=== PATIENT | female | born 1960 | race Caucasian/White ===

== ENCOUNTER 2020-09-03 12:31 | Inpatient (IN) | payer OTHER ==
[~2020-09-03] VITALS: Ht 157.5 cm; Wt 70.8 kg
[2020-09-03] MEDS ORDERED: LEVOFLOXACIN 500MG PREMIX 100 ML IV ONE (13:30)
[2020-09-03] MEDS ORDERED: SODIUM CHLORIDE 0.9% 1000ML BAG (SEPSIS BOLUS) IV ONE (13:30)
[2020-09-03 14:10] LABS: HEMATOCRIT. 34.4 % (36.0-48.0); HEMOGLOBIN. 11.8 g/dL (12.0-16.0); MEAN CORPUSCULAR HEMOGLOBIN 28.5 pg (28.0-32.0); MEAN PLATELET VOLUME 6.1 fl (7.4-10.4); PLATELET 245 x1000/uL (130-400); RED BLOOD CELL COUNT 4.15 mill/uL (4.2-5.4); RED CELL DISTRIBUTION WIDTH 17.7 % (11.6-14.6)
[2020-09-03 14:12] LABS: CHLORIDE 99 mEq/L (98-107)
[2020-09-03] MEDS ORDERED: ALBUTEROL (0.083%) 2.5MG/3ML NEB HHN STA (14:14)
[2020-09-03] MEDS ORDERED: IPRATROPIUM BROMIDE (0.02%) 0.5MG/2.5ML NEB HHN STA (14:14)
[2020-09-03 14:15] LABS: PROTHROMBIN TIME 10.6 sec (9.6-11.0)
[2020-09-03] MEDS ORDERED: ACETAMINOPHEN 325MG TABLET PO ONE (15:30)
[2020-09-03 15:56] LABS: PLATELET ESTIMATE NORMAL
[2020-09-03] MEDS ORDERED: IPRATROPIUM BROMIDE (0.02%) 0.5MG/2.5ML NEB HHN PRN (16:15)
[2020-09-03 16:52] LABS: BG BASE EXCESS -1.2 mmol/L (-2.0-2.0); BG CARBOXYHEMOGLOBIN 0.3 % (0.5-1.5); BG DEOXYHEMOGLOBIN 2.3 % (0.0-5.0); BG HCO3 ACT 21.4 mmol/L (22.0-26.0); BG METHEMOGLOBIN 0.3 % (0.0-1.5); BG OXYGEN SATURATION 97.7 % (92.0-98.5); BG OXYHEMOGLOBIN 97.1 % (94.0-97.0); BG PCO2 29.2 mmHg (35.0-45.0); BG PH 7.483 (7.350-7.450); BG PO2 100.3 mmHg (75.0-100.0); BG SAMPLE SITE LEFT RADIAL; BG TOTAL HEMOGLOBIN 10.9 g/dL (12.0-18.0); BG VENT MODE NASAL CANNULA
[2020-09-03] MEDS ORDERED: VANCOMYCIN 1 G PREMIX 200 ML IV NR (17:30)
[2020-09-03 22:00] VITALS: BP 123/95
[2020-09-03] MEDS ORDERED: DEXT 5%/0.45% NACL KCL 20MEQ/L 1,000 ML IV SCH (22:45)
[2020-09-03] MEDS ORDERED: IPRATROPIUM/ALBUTEROL 0.5-3(2.5)MG/3ML NEB HHN PRN (22:45)
[2020-09-03 22:52] VITALS: BP 123/95
[2020-09-03] MEDS ORDERED: NALOXONE HCL 0.4MG/ML VIAL IV PRN (23:00)
[2020-09-04] VITALS (11 sets, daily range): BP systolic 93–159; BP diastolic 65–106
[2020-09-04] MEDS: IPRATROPIUM BROMIDE (0.02%) 0.5MG/2.5ML NEB HHN SCH ×3 (00:40→15:34)
[2020-09-04] MEDS: MORPHINE SULFATE 2 MG/ML CPJ (NOT FOR IM USE) IV PRN ×2 (03:50→12:44)
[2020-09-04 05:20] LABS: CHLORIDE 101 mEq/L (98-107); MEAN CORPUSCULAR HEMOGLOBIN 28.7 pg (28.0-32.0); MEAN CORPUSCULAR VOLUME 82.8 fL (81.0-99.0); MEAN PLATELET VOLUME 5.9 fl (7.4-10.4); PLATELET 205 x1000/uL (130-400); RED BLOOD CELL COUNT 3.47 mill/uL (4.2-5.4); RED CELL DISTRIBUTION WIDTH 17.5 % (11.6-14.6)
[2020-09-04] MEDS ORDERED: VANCOMYCIN 750 MG PREMIX 150 ML IV SCH (05:30)
[2020-09-04 05:36] LABS: HEMATOCRIT. 28.8 % (36.0-48.0)
[2020-09-04] MEDS ORDERED: METOPROLOL TARTRATE 50MG TABLET PO SCH (09:00)
[2020-09-04 09:08] LABS: BG BASE EXCESS 0.2 mmol/L (-2.0-2.0); BG CARBOXYHEMOGLOBIN 0.4 % (0.5-1.5); BG DEOXYHEMOGLOBIN 13.6 % (0.0-5.0); BG FRACTION INSPIRED OXYGEN 36; BG HCO3 ACT 23.5 mmol/L (22.0-26.0); BG METHEMOGLOBIN 0.2 % (0.0-1.5); BG OXYGEN SATURATION 86.3 % (92.0-98.5); BG OXYHEMOGLOBIN 85.8 % (94.0-97.0); BG PCO2 33.3 mmHg (35.0-45.0); BG PH 7.466 (7.350-7.450); BG PO2 47.5 mmHg (75.0-100.0); BG SAMPLE SITE LEFT BRACHIAL; BG TOTAL HEMOGLOBIN 10.6 g/dL (12.0-18.0); BG VENT MODE NASAL CANNULA
[2020-09-04] MEDS: METOPROLOL TARTRATE 50MG TABLET GT SCH ×2 (09:30→21:00)
[2020-09-04] MEDS: PANTOPRAZOLE SODIUM 40 MG/VIAL IV SCH (09:30)
[2020-09-04] MEDS: SODIUM CHLORIDE 0.45% 1,000 ML IV SCH ×2 (10:11→23:18)
[2020-09-04 11:38] LABS: BG BASE EXCESS -1.2 mmol/L (-2.0-2.0); BG CARBOXYHEMOGLOBIN 0.5 % (0.5-1.5); BG DEOXYHEMOGLOBIN 13.7 % (0.0-5.0); BG HCO3 ACT 21.8 mmol/L (22.0-26.0); BG METHEMOGLOBIN 0.4 % (0.0-1.5); BG OXYGEN SATURATION 86.2 % (92.0-98.5); BG OXYHEMOGLOBIN 85.4 % (94.0-97.0); BG PCO2 31.1 mmHg (35.0-45.0); BG PH 7.464 (7.350-7.450); BG PO2 46.8 mmHg (75.0-100.0); BG TOTAL HEMOGLOBIN 11.9 g/dL (12.0-18.0)
[2020-09-04] MEDS ORDERED: IOHEXOL-350 100 ML BOTTLE ONE (13:25)
[2020-09-04] MEDS ORDERED: LEVOFLOXACIN 750MG PREMIX 150 ML IV SCH (14:00)
[2020-09-04] MEDS: LEVOFLOXACIN 750MG PREMIX 150 ML IV SCH (14:33)
[2020-09-04 14:54] LABS: NUCLEATED RED BLOOD CELLS 1 /100 WBC; PLATELET ESTIMATE NORMAL
[2020-09-04] MEDS: ACETAMINOPHEN 650MG/20.3ML UDC GT PRN (15:12)
[2020-09-04] MEDS ORDERED: DIGOXIN 500MCG/2ML AMP IV NR (15:30)
[2020-09-04] MEDS: VANCOMYCIN 750 MG PREMIX 150 ML IV SCH (17:48)
[2020-09-04] MEDS ORDERED: PHENYLEPHRINE 50 MG in DEXTROSE 5% WATER 250 ML IV PRN (22:15)
[2020-09-04] MEDS ORDERED: PHENYLEPHRINE 50 MG in DEXT 5% WATER 245 ML IV PRN (22:15)
[2020-09-04] MEDS ORDERED: SODIUM CHLORIDE 0.9% 500 ML IV NR ×2 (22:30→23:30)
[2020-09-04 22:53] LABS: BG BASE EXCESS -1.9 mmol/L (-2.0-2.0); BG CARBOXYHEMOGLOBIN 0.3 % (0.5-1.5); BG DEOXYHEMOGLOBIN 2.6 % (0.0-5.0); BG FRACTION INSPIRED OXYGEN 100; BG HCO3 ACT 21.6 mmol/L (22.0-26.0); BG METHEMOGLOBIN 0.3 % (0.0-1.5); BG OXYGEN SATURATION 97.4 % (92.0-98.5); BG OXYHEMOGLOBIN 96.8 % (94.0-97.0); BG PCO2 32.4 mmHg (35.0-45.0); BG PH 7.442 (7.350-7.450); BG PO2 100.6 mmHg (75.0-100.0); BG SAMPLE SITE RIGHT RADIAL; BG TOTAL HEMOGLOBIN 10.3 g/dL (12.0-18.0); BG VENT MODE MASK - NRB
[2020-09-05] VITALS (48 sets, daily range): BP systolic 97–147; BP diastolic 39–98
[2020-09-05] MEDS: MORPHINE SULFATE 2 MG/ML CPJ (NOT FOR IM USE) IV PRN ×4 (01:19→21:30)
[2020-09-05] MEDS: VANCOMYCIN 750 MG PREMIX 150 ML IV SCH (05:28)
[2020-09-05] MEDS: SODIUM CHLORIDE 0.45% 1,000 ML IV SCH (05:30)
[2020-09-05 06:03] LABS: HEMATOCRIT. 29.6 % (36.0-48.0); HEMOGLOBIN. 10.4 g/dL (12.0-16.0); MEAN CORPUSCULAR HEMOGLOBIN 30.4 pg (28.0-32.0); MEAN CORPUSCULAR VOLUME 86.4 fL (81.0-99.0); RED BLOOD CELL COUNT 3.43 mill/uL (4.2-5.4); RED CELL DISTRIBUTION WIDTH 17.4 % (11.6-14.6)
[2020-09-05 06:10] LABS: CHLORIDE 99 mEq/L (98-107)
[2020-09-05 06:17] LABS: VANCOMYCIN TROUGH 10.1 ug/mL (5.0-10.0)
[2020-09-05] MEDS: IPRATROPIUM BROMIDE (0.02%) 0.5MG/2.5ML NEB HHN SCH ×3 (09:24→20:17)
[2020-09-05] MEDS: ACETYLCYSTEINE 100MG/ML 10% VIAL 4ML INH SCH ×2 (09:25→16:32)
[2020-09-05] MEDS: PANTOPRAZOLE SODIUM 40 MG/VIAL IV SCH (09:50)
[2020-09-05] MEDS: METOPROLOL TARTRATE 50MG TABLET GT SCH ×2 (09:51→20:32)
[2020-09-05] MEDS ORDERED: [UNRECOGNIZED DRUG - OTHER] (10:58)
[2020-09-05] MEDS ORDERED: PANT40TA51 PO (11:00)
[2020-09-05] MEDS ORDERED: PROC10TA13 GT (11:02)
[2020-09-05] MEDS ORDERED: KEPP500 MT (11:04)
[2020-09-05 12:25] LABS: MEAN PLATELET VOLUME 6.4 fl (7.4-10.4); PLATELET ESTIMATE NORMAL
[2020-09-05 12:26] LABS: PLATELET 179 x1000/uL (130-400)
[2020-09-05] MEDS: LEVOFLOXACIN 750MG PREMIX 150 ML IV SCH (12:59)
[2020-09-05] MEDS: PREDNISONE 20MG TABLET PO SCH (12:59)
[2020-09-05] MEDS: VANCOMYCIN 500 MG PREMIX 100 ML IV SCH ×2 (15:08→22:09)
[2020-09-05] MEDS ORDERED: SULF1TAB47 MT (15:47)
[2020-09-05 17:06] LABS: COLOR URINE YELLOW (YELLOW)
[2020-09-05 17:07] LABS: CLARITY URINE CLOUDY (CLEAR); KETONES URINE NEGATIVE (NEGATIVE); NITRITE URINE NEGATIVE (NEGATIVE); OCCULT BLOOD URINE NEGATIVE (NEGATIVE); PH URINE 5.5 (4.5-8.0); PROTEIN URINE 1+ (NEGATIVE); SPECIFIC GRAVITY URINE 1.025 (1.005-1.030); UROBILINOGEN URINE 0.2 E.U./dL (0.2-1.0)
[2020-09-05 17:08] LABS: LEUKOCYTE ESTERASE URINE NEGATIVE (NEGATIVE)
[2020-09-05] MEDS ORDERED: VANCOMYCIN HCL 1 GM/VIAL GT SCH (18:00)
[2020-09-06] VITALS (40 sets, daily range): BP systolic 67–178; BP diastolic 44–132
[2020-09-06] MEDS: IPRATROPIUM BROMIDE (0.02%) 0.5MG/2.5ML NEB HHN SCH ×5 (00:09→20:50)
[2020-09-06] MEDS: ACETYLCYSTEINE 100MG/ML 10% VIAL 4ML INH SCH ×4 (00:09→22:00)
[2020-09-06] MEDS: VANCOMYCIN HCL 1000 MG/20 ML ORAL PO SCH ×4 (01:21→17:10)
[2020-09-06 04:50] LABS: HEMATOCRIT. 27.9 % (36.0-48.0); HEMOGLOBIN. 9.4 g/dL (12.0-16.0); MEAN CORPUSCULAR HEMOGLOBIN 27.8 pg (28.0-32.0); MEAN CORPUSCULAR VOLUME 82.9 fL (81.0-99.0); MEAN PLATELET VOLUME 6.4 fl (7.4-10.4); PLATELET 194 x1000/uL (130-400); RED BLOOD CELL COUNT 3.36 mill/uL (4.2-5.4); RED CELL DISTRIBUTION WIDTH 17.3 % (11.6-14.6)
[2020-09-06 05:07] LABS: CHLORIDE 94 mEq/L (98-107)
[2020-09-06] MEDS: METOPROLOL TARTRATE 50MG TABLET GT SCH ×2 (08:36→21:53)
[2020-09-06] MEDS: PREDNISONE 20MG TABLET PO SCH (08:36)
[2020-09-06] MEDS: PANTOPRAZOLE SODIUM 40 MG/VIAL IV SCH (08:36)
[2020-09-06] MEDS: VANCOMYCIN 500 MG PREMIX 100 ML IV SCH ×3 (08:36→21:53)
[2020-09-06] MEDS: ACETAMINOPHEN 650MG/20.3ML UDC GT PRN (08:43)
[2020-09-06 10:17] LABS: PLATELET ESTIMATE NORMAL
[2020-09-06] MEDS ORDERED: FUROSEMIDE 40MG/4ML VIAL IVP NR (10:45)
[2020-09-06] MEDS: SODIUM CHLORIDE 0.9% 1,000 ML IV SCH (10:51)
[2020-09-06] MEDS: LEVOFLOXACIN 750MG PREMIX 150 ML IV SCH (10:51)
[2020-09-06 15:45] LABS: VANCOMYCIN TROUGH 16.9 ug/mL (5.0-10.0)
[2020-09-06] MEDS: MORPHINE SULFATE 2 MG/ML CPJ (NOT FOR IM USE) IV PRN (20:51)
[2020-09-07] VITALS: BP 117/69
[2020-09-07] MEDS: VANCOMYCIN HCL 1000 MG/20 ML ORAL PO SCH ×4 (00:13→17:56)
[2020-09-07] MEDS: HYDROCODONE/ACETAMINOPHEN 5/325MG TABLET PO PRN ×2 (00:25→10:05)
[2020-09-07 04:00] VITALS: BP 112/62
[2020-09-07] MEDS: VANCOMYCIN 500 MG PREMIX 100 ML IV SCH ×2 (05:20→14:48)
[2020-09-07] MEDS: SODIUM CHLORIDE 0.9% 1,000 ML IV SCH (07:39)
[2020-09-07 08:00] VITALS: BP 102/56
[2020-09-07] MEDS: IPRATROPIUM BROMIDE (0.02%) 0.5MG/2.5ML NEB HHN SCH ×4 (08:08→20:33)
[2020-09-07] MEDS: ACETYLCYSTEINE 100MG/ML 10% VIAL 4ML INH SCH ×2 (08:08→13:47)
[2020-09-07] MEDS: METOPROLOL TARTRATE 50MG TABLET GT SCH ×2 (09:00→21:13)
[2020-09-07] MEDS: PANTOPRAZOLE SODIUM 40 MG/VIAL IV SCH (09:29)
[2020-09-07] MEDS: PREDNISONE 20MG TABLET PO SCH (09:30)
[2020-09-07] MEDS: LEVOFLOXACIN 750MG PREMIX 150 ML IV SCH (11:37)
[2020-09-07 12:00] VITALS: BP 112/73
[2020-09-07] MEDS ORDERED: DIGOXIN 500MCG/2ML AMP IV NR (13:30)
[2020-09-07 16:00] VITALS: BP 142/73
[2020-09-07] MEDS: DOCUSATE SODIUM 100MG CAPSULE PO SCH (17:00)
[2020-09-07 20:00] VITALS: BP 125/86
[2020-09-07] MEDS ORDERED: PRED1TAB GT (20:29)
[2020-09-08] VITALS: BP 129/76
[2020-09-08] MEDS: VANCOMYCIN HCL 1000 MG/20 ML ORAL PO SCH ×4 (00:16→18:17)
[2020-09-08] MEDS: HYDROCODONE/ACETAMINOPHEN 5/325MG TABLET PO PRN ×2 (00:17→14:20)
[2020-09-08] MEDS: IPRATROPIUM BROMIDE (0.02%) 0.5MG/2.5ML NEB HHN SCH ×4 (00:56→18:00)
[2020-09-08] MEDS: ACETYLCYSTEINE 100MG/ML 10% VIAL 4ML INH SCH ×4 (00:56→20:30)
[2020-09-08 04:00] VITALS: BP 118/69
[2020-09-08] MEDS: SODIUM CHLORIDE 0.9% 1,000 ML IV SCH ×2 (05:35→23:00)
[2020-09-08 05:57] LABS: HEMATOCRIT. 27.9 % (36.0-48.0); HEMOGLOBIN. 9.2 g/dL (12.0-16.0); MEAN CORPUSCULAR HEMOGLOBIN 27.7 pg (28.0-32.0); MEAN CORPUSCULAR VOLUME 83.6 fL (81.0-99.0); MEAN PLATELET VOLUME 6.4 fl (7.4-10.4); PLATELET 192 x1000/uL (130-400); RED BLOOD CELL COUNT 3.33 mill/uL (4.2-5.4); RED CELL DISTRIBUTION WIDTH 16.9 % (11.6-14.6)
[2020-09-08 06:06] LABS: CHLORIDE 95 mEq/L (98-107)
[2020-09-08 08:00] VITALS: BP 119/75
[2020-09-08] MEDS: DOCUSATE SODIUM 100MG CAPSULE PO SCH ×2 (09:00→16:25)
[2020-09-08] MEDS: PREDNISONE 20MG TABLET PO SCH (09:37)
[2020-09-08] MEDS: METOPROLOL TARTRATE 50MG TABLET GT SCH ×2 (09:38→21:00)
[2020-09-08] MEDS: FAMOTIDINE 20MG TABLET GT SCH ×2 (09:38→22:02)
[2020-09-08] MEDS: MORPHINE SULFATE 2 MG/ML CPJ (NOT FOR IM USE) IV PRN (10:08)
[2020-09-08 12:00] VITALS: BP 115/81
[2020-09-08 13:06] LABS: BG CARBOXYHEMOGLOBIN 0.3 % (0.5-1.5); BG DEOXYHEMOGLOBIN 17.5 % (0.0-5.0); BG FRACTION INSPIRED OXYGEN 21; BG HCO3 ACT 25.8 mmol/L (22.0-26.0); BG METHEMOGLOBIN 0.1 % (0.0-1.5); BG OXYGEN SATURATION 82.4 % (92.0-98.5); BG OXYHEMOGLOBIN 82.1 % (94.0-97.0); BG PCO2 36.9 mmHg (35.0-45.0); BG PH 7.462 (7.350-7.450); BG PO2 43.1 mmHg (75.0-100.0); BG SAMPLE SITE RIGHT BRACHIAL; BG TOTAL HEMOGLOBIN 10.5 g/dL (12.0-18.0); BG VENT MODE ROOM AIR
[2020-09-08 14:10] LABS: PLATELET ESTIMATE NORMAL
[2020-09-08] MEDS: LEVOFLOXACIN 750MG PREMIX 150 ML IV SCH (14:19)
[2020-09-08 16:00] VITALS: BP 106/77
[2020-09-08 20:00] VITALS: BP 103/64
[2020-09-08] MEDS: ACETAMINOPHEN 650MG/20.3ML UDC GT PRN (22:02)
[2020-09-09] VITALS: BP 108/72
[2020-09-09] MEDS: VANCOMYCIN HCL 1000 MG/20 ML ORAL PO SCH ×5 (00:29→23:52)
[2020-09-09] MEDS: IPRATROPIUM BROMIDE (0.02%) 0.5MG/2.5ML NEB HHN SCH ×4 (00:48→16:17)
[2020-09-09 04:00] VITALS: BP 111/69
[2020-09-09 07:22] LABS: HEMATOCRIT. 27.1 % (36.0-48.0); HEMOGLOBIN. 9.4 g/dL (12.0-16.0); MEAN CORPUSCULAR HEMOGLOBIN 28.6 pg (28.0-32.0); MEAN CORPUSCULAR VOLUME 82.5 fL (81.0-99.0); MEAN PLATELET VOLUME 6.3 fl (7.4-10.4); PLATELET 160 x1000/uL (130-400); RED BLOOD CELL COUNT 3.29 mill/uL (4.2-5.4); RED CELL DISTRIBUTION WIDTH 17.4 % (11.6-14.6)
[2020-09-09 07:28] LABS: CHLORIDE 95 mEq/L (98-107)
[2020-09-09 08:21] VITALS: BP 128/94
[2020-09-09] MEDS: DOCUSATE SODIUM 100MG CAPSULE PO SCH ×2 (09:00→17:00)
[2020-09-09] MEDS: FAMOTIDINE 20MG TABLET GT SCH ×2 (09:03→21:22)
[2020-09-09] MEDS: PREDNISONE 20MG TABLET PO SCH (09:03)
[2020-09-09] MEDS: METOPROLOL TARTRATE 50MG TABLET GT SCH ×2 (09:03→21:00)
[2020-09-09] MEDS: ACETYLCYSTEINE 100MG/ML 10% VIAL 4ML INH SCH ×2 (09:20→16:18)
[2020-09-09] MEDS: ACETAMINOPHEN 650MG/20.3ML UDC GT PRN ×2 (10:03→21:21)
[2020-09-09 11:41] VITALS: BP 104/55
[2020-09-09] MEDS: LEVOFLOXACIN 750MG PREMIX 150 ML IV SCH (11:51)
[2020-09-09 16:00] VITALS: BP 93/54
[2020-09-09] MEDS: SODIUM CHLORIDE 0.9% 1,000 ML IV SCH (19:02)
[2020-09-09 20:20] VITALS: BP 106/75
[2020-09-09 21:07] LABS: PLATELET ESTIMATE NORMAL
[2020-09-10] VITALS (7 sets, daily range): BP systolic 112–151; BP diastolic 64–83
[2020-09-10 05:03] LABS: CHLORIDE 96 mEq/L (98-107)
[2020-09-10] MEDS: IPRATROPIUM BROMIDE (0.02%) 0.5MG/2.5ML NEB HHN SCH ×4 (05:23→20:41)
[2020-09-10 06:00] LABS: HEMATOCRIT. 27.4 % (36.0-48.0); HEMOGLOBIN. 9.1 g/dL (12.0-16.0); MEAN PLATELET VOLUME 6.5 fl (7.4-10.4); PLATELET 144 x1000/uL (130-400); RED BLOOD CELL COUNT 3.26 mill/uL (4.2-5.4); RED CELL DISTRIBUTION WIDTH 17.8 % (11.6-14.6)
[2020-09-10] MEDS: VANCOMYCIN HCL 1000 MG/20 ML ORAL PO SCH ×3 (06:24→23:42)
[2020-09-10] MEDS: DOCUSATE SODIUM 100MG CAPSULE PO SCH ×2 (09:00→17:00)
[2020-09-10] MEDS: PREDNISONE 20MG TABLET PO SCH (09:52)
[2020-09-10] MEDS: FAMOTIDINE 20MG TABLET GT SCH ×2 (09:53→20:16)
[2020-09-10] MEDS: METOPROLOL TARTRATE 50MG TABLET GT SCH ×2 (10:00→20:15)
[2020-09-10 13:10] LABS: BG BASE EXCESS 2.7 mmol/L (-2.0-2.0); BG CARBOXYHEMOGLOBIN 0.2 % (0.5-1.5); BG DEOXYHEMOGLOBIN 3.2 % (0.0-5.0); BG FRACTION INSPIRED OXYGEN 55; BG HCO3 ACT 27.3 mmol/L (22.0-26.0); BG METHEMOGLOBIN 0.2 % (0.0-1.5); BG OXYGEN SATURATION 96.8 % (92.0-98.5); BG OXYHEMOGLOBIN 96.4 % (94.0-97.0); BG PCO2 42.5 mmHg (35.0-45.0); BG PH 7.426 (7.350-7.450); BG PO2 92.3 mmHg (75.0-100.0); BG SAMPLE SITE RIGHT BRACHIAL; BG TOTAL HEMOGLOBIN 10.2 g/dL (12.0-18.0); BG VENT MODE MASK - BIPAP
[2020-09-10] MEDS ORDERED: MORPHINE SULFATE 2 MG/ML CPJ (NOT FOR IM USE) IV PRN (15:30)
[2020-09-10] MEDS ORDERED: HYDROCODONE/ACETAMINOPHEN 5/325MG TABLET PO PRN (15:30)
[2020-09-10] MEDS: ACETYLCYSTEINE 100MG/ML 10% VIAL 4ML INH SCH (15:44)
[2020-09-10] MEDS: SODIUM CHLORIDE 0.9% 1,000 ML IV SCH (18:25)
[2020-09-11] VITALS (19 sets, daily range): BP systolic 87–126; BP diastolic 59–79
[2020-09-11] MEDS: IPRATROPIUM BROMIDE (0.02%) 0.5MG/2.5ML NEB HHN SCH ×4 (01:37→20:00)
[2020-09-11] MEDS: ACETYLCYSTEINE 100MG/ML 10% VIAL 4ML INH SCH ×3 (01:37→15:59)
[2020-09-11] MEDS: ACETAMINOPHEN 650MG/20.3ML UDC GT PRN ×2 (03:08→18:31)
[2020-09-11] MEDS: VANCOMYCIN HCL 1000 MG/20 ML ORAL PO SCH ×3 (05:11→18:27)
[2020-09-11 07:22] LABS: CHLORIDE 94 mEq/L (98-107)
[2020-09-11 08:19] LABS: HEMATOCRIT. 27.2 % (36.0-48.0); HEMOGLOBIN. 8.7 g/dL (12.0-16.0); MEAN CORPUSCULAR HEMOGLOBIN 27.3 pg (28.0-32.0); MEAN CORPUSCULAR VOLUME 85.5 fL (81.0-99.0); MEAN PLATELET VOLUME 6.5 fl (7.4-10.4); PLATELET 141 x1000/uL (130-400); RED BLOOD CELL COUNT 3.18 mill/uL (4.2-5.4); RED CELL DISTRIBUTION WIDTH 17.6 % (11.6-14.6)
[2020-09-11] MEDS: DOCUSATE SODIUM 100MG CAPSULE PO SCH ×2 (09:00→17:00)
[2020-09-11] MEDS: METOPROLOL TARTRATE 50MG TABLET GT SCH ×2 (09:00→21:00)
[2020-09-11] MEDS: SODIUM CHLORIDE 0.9% 1,000 ML IV SCH (10:39)
[2020-09-11] MEDS: FAMOTIDINE 20MG TABLET GT SCH ×2 (10:39→22:05)
[2020-09-11] MEDS: PREDNISONE 20MG TABLET PO SCH (10:40)
[2020-09-11] MEDS ORDERED: NALOXONE HCL 0.4MG/ML VIAL IV PRN (13:00)
[2020-09-11] MEDS: AZTREONAM 2 GM in DEXT 5% WATER 100 ML IV SCH ×2 (15:00→22:05)
[2020-09-11 17:54] LABS: PLATELET ESTIMATE NORMAL
[2020-09-11 19:15] LABS: PLATELET ESTIMATE NORMAL
[2020-09-12] VITALS (15 sets, daily range): BP systolic 96–130; BP diastolic 64–76
[2020-09-12] MEDS: IPRATROPIUM BROMIDE (0.02%) 0.5MG/2.5ML NEB HHN SCH ×6 (00:43→21:29)
[2020-09-12] MEDS: ACETYLCYSTEINE 100MG/ML 10% VIAL 4ML INH SCH ×3 (00:44→16:40)
[2020-09-12] MEDS: AZTREONAM 2 GM in DEXT 5% WATER 100 ML IV SCH ×3 (06:30→21:25)
[2020-09-12] MEDS: SODIUM CHLORIDE 0.9% 1,000 ML IV SCH (07:00)
[2020-09-12 07:12] LABS: CHLORIDE 99 mEq/L (98-107)
[2020-09-12 07:19] LABS: HEMATOCRIT. 26.9 % (36.0-48.0); HEMOGLOBIN. 8.5 g/dL (12.0-16.0); MEAN CORPUSCULAR HEMOGLOBIN 27.2 pg (28.0-32.0); MEAN CORPUSCULAR VOLUME 86.3 fL (81.0-99.0); MEAN PLATELET VOLUME 6.9 fl (7.4-10.4); PLATELET 105 x1000/uL (130-400); RED BLOOD CELL COUNT 3.12 mill/uL (4.2-5.4); RED CELL DISTRIBUTION WIDTH 17.9 % (11.6-14.6)
[2020-09-12] MEDS: PREDNISONE 20MG TABLET PO SCH (08:09)
[2020-09-12] MEDS: DOCUSATE SODIUM 100MG CAPSULE PO SCH ×2 (08:09→16:10)
[2020-09-12] MEDS: FAMOTIDINE 20MG TABLET GT SCH ×2 (08:09→21:18)
[2020-09-12] MEDS: METOPROLOL TARTRATE 50MG TABLET GT SCH ×2 (08:10→21:18)
[2020-09-12] MEDS: VANCOMYCIN HCL 1000 MG/20 ML ORAL PO SCH ×2 (13:03→17:26)
[2020-09-12] MEDS: METOCLOPRAMIDE HCL 10MG/2ML VIAL IV SCH (17:26)
[2020-09-12 20:20] LABS: PLATELET ESTIMATE DECREASED
[2020-09-13] VITALS (30 sets, daily range): BP systolic 45–146; BP diastolic 22–107
[2020-09-13] MEDS: IPRATROPIUM BROMIDE (0.02%) 0.5MG/2.5ML NEB HHN SCH ×5 (00:53→16:35)
[2020-09-13] MEDS: ACETYLCYSTEINE 100MG/ML 10% VIAL 4ML INH SCH ×3 (00:53→16:35)
[2020-09-13] MEDS: SODIUM CHLORIDE 0.9% 1,000 ML IV SCH ×3 (03:00→23:21)
[2020-09-13] MEDS: AZTREONAM 2 GM in DEXT 5% WATER 100 ML IV SCH ×3 (05:10→22:00)
[2020-09-13] MEDS: VANCOMYCIN HCL 1000 MG/20 ML ORAL PO SCH ×4 (05:18→17:38)
[2020-09-13] MEDS: METOCLOPRAMIDE HCL 10MG/2ML VIAL IV SCH ×4 (05:20→17:38)
[2020-09-13 07:21] LABS: CHLORIDE 100 mEq/L (98-107)
[2020-09-13 07:49] LABS: HEMOGLOBIN. 8.1 g/dL (12.0-16.0); MEAN CORPUSCULAR HEMOGLOBIN 27.9 pg (28.0-32.0); MEAN PLATELET VOLUME 6.9 fl (7.4-10.4); PLATELET 109 x1000/uL (130-400); RED BLOOD CELL COUNT 2.91 mill/uL (4.2-5.4); RED CELL DISTRIBUTION WIDTH 17.5 % (11.6-14.6)
[2020-09-13] MEDS: PREDNISONE 20MG TABLET PO SCH (08:56)
[2020-09-13] MEDS: METOPROLOL TARTRATE 50MG TABLET GT SCH ×2 (08:57→21:00)
[2020-09-13] MEDS: FAMOTIDINE 20MG TABLET GT SCH ×2 (08:58→21:00)
[2020-09-13] MEDS: DOCUSATE SODIUM 100MG CAPSULE PO SCH ×2 (08:58→16:46)
[2020-09-13] MEDS ORDERED: VECURONIUM BROMIDE 10 MG/VIAL IV ONE (10:00)
[2020-09-13] MEDS ORDERED: ETOMIDATE 2MG/ML 10ML VIAL IV ONE (10:00)
[2020-09-13] MEDS ORDERED: FUROSEMIDE 20MG/2ML VIAL IVP NR (11:30)
[2020-09-13] MEDS ORDERED: SODIUM CHLORIDE 3% FOR INH 4ML UD NEB INH SCH (15:00)
[2020-09-13 15:32] LABS: PLATELET ESTIMATE DECREASED
[2020-09-13] MEDS ORDERED: MIDODRINE HCL 5MG TABLET PO SCH (18:00)
[2020-09-13 19:07] LABS: BG CARBOXYHEMOGLOBIN 0.3 % (0.5-1.5); BG DEOXYHEMOGLOBIN 5.4 % (0.0-5.0); BG FRACTION INSPIRED OXYGEN 100; BG METHEMOGLOBIN 0.5 % (0.0-1.5); BG OXYGEN SATURATION 94.6 % (92.0-98.5); BG OXYHEMOGLOBIN 93.8 % (94.0-97.0); BG PH 6.833 (7.350-7.450); BG PO2 88.2 mmHg (75.0-100.0); BG SAMPLE SITE RIGHT RADIAL; BG TOTAL HEMOGLOBIN 10.1 g/dL (12.0-18.0); BG VENT MODE MASK - BIPAP
[2020-09-13] MEDS ORDERED: SODIUM BICARBONATE 8.4% 1 MEQ/ML 50ML SYR IV NR (19:15)
[2020-09-13] MEDS ORDERED: FENTANYL CITRATE/PF 2,500 MCG in SODIUM CHLORIDE 0.9% 200 ML IV PRN (19:30)
[2020-09-13] MEDS ORDERED: MIDAZOLAM HCL 100 MG in SODIUM CHLORIDE 0.9% 80 ML IV PRN (19:30)
[2020-09-13] MEDS ORDERED: VASOPRESSIN 20 UNIT in SODIUM CHLORIDE 0.9% 99 ML IV PRN (19:30)
[2020-09-13] MEDS: PHENYLEPHRINE 50 MG in DEXT 5% WATER 245 ML IV PRN (20:02)
[2020-09-13 20:34] LABS: BG BASE EXCESS 11.8 mmol/L (-2.0-2.0); BG CARBOXYHEMOGLOBIN 0.3 % (0.5-1.5); BG DEOXYHEMOGLOBIN 0.9 % (0.0-5.0); BG FRACTION INSPIRED OXYGEN 100; BG HCO3 ACT 36.1 mmol/L (22.0-26.0); BG METHEMOGLOBIN 0.6 % (0.0-1.5); BG OXYGEN SATURATION 99.1 % (92.0-98.5); BG OXYHEMOGLOBIN 98.2 % (94.0-97.0); BG PCO2 46.6 mmHg (35.0-45.0); BG PH 7.507 (7.350-7.450); BG PO2 226.9 mmHg (75.0-100.0); BG SAMPLE SITE RIGHT RADIAL; BG TOTAL HEMOGLOBIN 8.7 g/dL (12.0-18.0); BG VENT MODE VENT - AC
[2020-09-14] VITALS (96 sets, daily range): BP systolic 82–143; BP diastolic 50–100
[2020-09-14] MEDS: IPRATROPIUM BROMIDE (0.02%) 0.5MG/2.5ML NEB HHN SCH ×6 (00:06→21:02)
[2020-09-14] MEDS: ACETYLCYSTEINE 100MG/ML 10% VIAL 4ML INH SCH ×3 (00:06→15:26)
[2020-09-14] MEDS: METOCLOPRAMIDE HCL 10MG/2ML VIAL IV SCH ×4 (00:08→17:51)
[2020-09-14] MEDS: PHENYLEPHRINE 50 MG in DEXT 5% WATER 245 ML IV PRN ×3 (01:16→13:12)
[2020-09-14 05:42] LABS: CHLORIDE 98 mEq/L (98-107)
[2020-09-14 05:50] LABS: HEMOGLOBIN. 7.7 g/dL (12.0-16.0); MEAN CORPUSCULAR HEMOGLOBIN 27.4 pg (28.0-32.0); MEAN CORPUSCULAR VOLUME 84.8 fL (81.0-99.0); MEAN PLATELET VOLUME 7.8 fl (7.4-10.4); PLATELET 112 x1000/uL (130-400); RED BLOOD CELL COUNT 2.83 mill/uL (4.2-5.4); RED CELL DISTRIBUTION WIDTH 17.4 % (11.6-14.6)
[2020-09-14] MEDS: VANCOMYCIN HCL 1000 MG/20 ML ORAL PO SCH ×4 (06:33→17:54)
[2020-09-14] MEDS: AZTREONAM 2 GM in DEXT 5% WATER 100 ML IV SCH ×3 (06:58→22:50)
[2020-09-14] MEDS: METOPROLOL TARTRATE 50MG TABLET GT SCH ×2 (09:00→21:00)
[2020-09-14] MEDS ORDERED: MIDODRINE HCL 5MG TABLET PO SCH (09:00)
[2020-09-14] MEDS ORDERED: FUROSEMIDE 20MG/2ML VIAL IVP SCH (09:00)
[2020-09-14] MEDS: ACETAMINOPHEN 650MG/20.3ML UDC GT PRN ×2 (09:03→13:35)
[2020-09-14] MEDS: FAMOTIDINE 20MG TABLET GT SCH ×2 (09:05→21:14)
[2020-09-14] MEDS: PREDNISONE 20MG TABLET PO SCH (09:05)
[2020-09-14] MEDS: DOCUSATE SODIUM 100MG CAPSULE PO SCH ×2 (09:05→17:00)
[2020-09-14 09:28] LABS: BG BASE EXCESS 11.1 mmol/L (-2.0-2.0); BG CARBOXYHEMOGLOBIN 0.3 % (0.5-1.5); BG DEOXYHEMOGLOBIN 12.8 % (0.0-5.0); BG FRACTION INSPIRED OXYGEN 50; BG METHEMOGLOBIN 0.3 % (0.0-1.5); BG OXYGEN SATURATION 87.1 % (92.0-98.5); BG OXYHEMOGLOBIN 86.6 % (94.0-97.0); BG PCO2 43.8 mmHg (35.0-45.0); BG PO2 42.7 mmHg (75.0-100.0); BG SAMPLE SITE RIGHT RADIAL; BG TOTAL HEMOGLOBIN 7.4 g/dL (12.0-18.0); BG VENT MODE VENT - AC
[2020-09-14] MEDS: MIDODRINE HCL 5MG TABLET PO SCH ×3 (09:32→17:52)
[2020-09-14 10:48] LABS: PLATELET ESTIMATE SLIGHTLY DECREASED
[2020-09-14 10:49] LABS: NUCLEATED RED BLOOD CELLS 5 /100 WBC
[2020-09-14] MEDS ORDERED: SODIUM CHLORIDE 0.9% 500 ML IV SCH (12:00)
[2020-09-15] VITALS (96 sets, daily range): BP systolic 105–156; BP diastolic 67–106
[2020-09-15] MEDS: IPRATROPIUM BROMIDE (0.02%) 0.5MG/2.5ML NEB HHN SCH ×6 (00:20→20:30)
[2020-09-15] MEDS: ACETYLCYSTEINE 100MG/ML 10% VIAL 4ML INH SCH ×3 (00:21→17:01)
[2020-09-15] MEDS: VANCOMYCIN HCL 1000 MG/20 ML ORAL PO SCH ×5 (00:23→23:57)
[2020-09-15] MEDS: METOCLOPRAMIDE HCL 10MG/2ML VIAL IV SCH ×5 (00:23→23:56)
[2020-09-15 05:03] LABS: MEAN CORPUSCULAR HEMOGLOBIN 27.1 pg (28.0-32.0); MEAN CORPUSCULAR VOLUME 85.7 fL (81.0-99.0); MEAN PLATELET VOLUME 7.9 fl (7.4-10.4); PLATELET 63 x1000/uL (130-400); RED CELL DISTRIBUTION WIDTH 17.6 % (11.6-14.6)
[2020-09-15 05:09] LABS: CHLORIDE 96 mEq/L (98-107)
[2020-09-15 05:21] LABS: HEMATOCRIT. 20.5 % (36.0-48.0); HEMOGLOBIN. 6.5 g/dL (12.0-16.0)
[2020-09-15] MEDS: AZTREONAM 2 GM in DEXT 5% WATER 100 ML IV SCH ×3 (06:03→21:25)
[2020-09-15] MEDS: MIDODRINE HCL 5MG TABLET PO SCH ×3 (08:19→17:00)
[2020-09-15] MEDS: FAMOTIDINE 20MG TABLET GT SCH ×2 (08:19→21:25)
[2020-09-15] MEDS: DOCUSATE SODIUM 100MG CAPSULE PO SCH ×2 (08:19→17:47)
[2020-09-15] MEDS: METOPROLOL TARTRATE 50MG TABLET GT SCH ×2 (08:23→21:25)
[2020-09-15] MEDS: PREDNISONE 20MG TABLET PO SCH (08:23)
[2020-09-15 10:11] LABS: BG BASE EXCESS 9.4 mmol/L (-2.0-2.0); BG CARBOXYHEMOGLOBIN 0.5 % (0.5-1.5); BG DEOXYHEMOGLOBIN 2.5 % (0.0-5.0); BG FRACTION INSPIRED OXYGEN 60; BG HCO3 ACT 33.5 mmol/L (22.0-26.0); BG METHEMOGLOBIN 0.7 % (0.0-1.5); BG OXYGEN SATURATION 97.5 % (92.0-98.5); BG OXYHEMOGLOBIN 96.3 % (94.0-97.0); BG PCO2 44.1 mmHg (35.0-45.0); BG PH 7.499 (7.350-7.450); BG PO2 91.1 mmHg (75.0-100.0); BG SAMPLE SITE RIGHT RADIAL; BG TOTAL HEMOGLOBIN 7.8 g/dL (12.0-18.0); BG VENT MODE VENT - AC
[2020-09-15] MEDS ORDERED: FUROSEMIDE 20MG/2ML VIAL IVP NR (10:30)
[2020-09-15 12:16] LABS: PLATELET ESTIMATE DECREASED
[2020-09-15 16:19] LABS: HEMOGLOBIN 8.9 g/dL (12.0-16.0)
[2020-09-15 16:35] LABS: D-DIMER 6.57 mg/L FEU (<0.50); INR 1.1; PROTHROMBIN TIME 11.5 sec (9.6-11.0)
[2020-09-15 18:02] LABS: TOTAL IRON BINDING CAPACITY 151 ug/dL (250-450)
[2020-09-15 18:26] LABS: VITAMIN B12 SERUM >2000 pg/mL pg/mL (211-911)
[2020-09-15 23:55] LABS: FERRITIN 2155 ng/mL (10-291)
[2020-09-16] VITALS (89 sets, daily range): BP systolic 79–148; BP diastolic 48–98
[2020-09-16] MEDS: ACETYLCYSTEINE 100MG/ML 10% VIAL 4ML INH SCH ×4 (00:11→20:26)
[2020-09-16] MEDS: IPRATROPIUM BROMIDE (0.02%) 0.5MG/2.5ML NEB HHN SCH ×6 (00:11→20:26)
[2020-09-16] MEDS: METOCLOPRAMIDE HCL 10MG/2ML VIAL IV SCH ×3 (05:22→17:14)
[2020-09-16] MEDS: VANCOMYCIN HCL 1000 MG/20 ML ORAL PO SCH ×3 (05:23→17:14)
[2020-09-16] MEDS: AZTREONAM 2 GM in DEXT 5% WATER 100 ML IV SCH ×3 (05:23→21:34)
[2020-09-16 05:37] LABS: HEMATOCRIT. 27.2 % (36.0-48.0); HEMOGLOBIN. 8.9 g/dL (12.0-16.0); MEAN CORPUSCULAR VOLUME 82.4 fL (81.0-99.0); MEAN PLATELET VOLUME 8.2 fl (7.4-10.4); PLATELET 58 x1000/uL (130-400); RED CELL DISTRIBUTION WIDTH 18.1 % (11.6-14.6)
[2020-09-16 05:46] LABS: CHLORIDE 96 mEq/L (98-107)
[2020-09-16 08:54] LABS: BG BASE EXCESS 9.2 mmol/L (-2.0-2.0); BG CARBOXYHEMOGLOBIN 0.4 % (0.5-1.5); BG DEOXYHEMOGLOBIN 2.4 % (0.0-5.0); BG FRACTION INSPIRED OXYGEN 60; BG HCO3 ACT 34.5 mmol/L (22.0-26.0); BG METHEMOGLOBIN 0.6 % (0.0-1.5); BG OXYGEN SATURATION 97.6 % (92.0-98.5); BG OXYHEMOGLOBIN 96.6 % (94.0-97.0); BG PCO2 51.5 mmHg (35.0-45.0); BG PH 7.444 (7.350-7.450); BG PO2 98.3 mmHg (75.0-100.0); BG SAMPLE SITE RIGHT BRACHIAL; BG TOTAL HEMOGLOBIN 10.3 g/dL (12.0-18.0); BG VENT MODE VENT - AC
[2020-09-16] MEDS ORDERED: POTASSIUM CHLORIDE 20MEQ TABLET SR PO SCH (09:00)
[2020-09-16] MEDS: PREDNISONE 20MG TABLET PO SCH (09:02)
[2020-09-16] MEDS: MIDODRINE HCL 5MG TABLET PO SCH ×3 (09:03→17:14)
[2020-09-16] MEDS: METOPROLOL TARTRATE 50MG TABLET GT SCH ×2 (09:03→21:33)
[2020-09-16] MEDS: DOCUSATE SODIUM 100MG CAPSULE PO SCH ×2 (09:03→17:14)
[2020-09-16] MEDS: FAMOTIDINE 20MG TABLET GT SCH ×2 (09:03→21:34)
[2020-09-16] MEDS ORDERED: LACTULOSE 20G/30ML UDC PO SCH (09:30)
[2020-09-16] MEDS ORDERED: GADOTERATE MEGLUMINE 5 MMOL/10 ML VIAL IV ONE (13:54)
[2020-09-16 16:34] LABS: NUCLEATED RED BLOOD CELLS 4 /100 WBC; PLATELET ESTIMATE MARKEDLY DECREASED
[2020-09-16] MEDS: FENTANYL CITRATE/PF 2,500 MCG in SODIUM CHLORIDE 0.9% 200 ML IV PRN (17:32)
[2020-09-17] VITALS (91 sets, daily range): BP systolic 78–119; BP diastolic 58–84
[2020-09-17] MEDS: IPRATROPIUM BROMIDE (0.02%) 0.5MG/2.5ML NEB HHN SCH ×6 (00:08→21:26)
[2020-09-17] MEDS: METOCLOPRAMIDE HCL 10MG/2ML VIAL IV SCH ×5 (00:25→23:48)
[2020-09-17] MEDS: VANCOMYCIN HCL 1000 MG/20 ML ORAL PO SCH ×5 (00:25→23:49)
[2020-09-17 06:45] LABS: HEMOGLOBIN. 8.1 g/dL (12.0-16.0); MEAN CORPUSCULAR HEMOGLOBIN 26.8 pg (28.0-32.0); MEAN CORPUSCULAR VOLUME 83.1 fL (81.0-99.0); PLATELET 55 x1000/uL (130-400); RED CELL DISTRIBUTION WIDTH 17.9 % (11.6-14.6)
[2020-09-17 06:59] LABS: CHLORIDE 99 mEq/L (98-107)
[2020-09-17 07:46] LABS: BG BASE EXCESS 7.3 mmol/L (-2.0-2.0); BG CARBOXYHEMOGLOBIN 0.2 % (0.5-1.5); BG DEOXYHEMOGLOBIN 3.5 % (0.0-5.0); BG HCO3 ACT 30.9 mmol/L (22.0-26.0); BG METHEMOGLOBIN 0.6 % (0.0-1.5); BG OXYGEN SATURATION 96.5 % (92.0-98.5); BG OXYHEMOGLOBIN 95.7 % (94.0-97.0); BG PCO2 39.7 mmHg (35.0-45.0); BG PH 7.509 (7.350-7.450); BG PO2 86.4 mmHg (75.0-100.0); BG SAMPLE SITE RIGHT RADIAL; BG TOTAL HEMOGLOBIN 10.1 g/dL (12.0-18.0); BG VENT MODE VENT- PRVC
[2020-09-17] MEDS: AZTREONAM 2 GM in DEXT 5% WATER 100 ML IV SCH ×3 (07:59→22:00)
[2020-09-17] MEDS: ACETYLCYSTEINE 100MG/ML 10% VIAL 4ML INH SCH ×2 (08:22→16:44)
[2020-09-17] MEDS: DOCUSATE SODIUM 100MG CAPSULE PO SCH ×2 (08:40→13:00)
[2020-09-17] MEDS: FAMOTIDINE 20MG TABLET GT SCH ×2 (08:50→21:00)
[2020-09-17] MEDS: PREDNISONE 20MG TABLET PO SCH (08:51)
[2020-09-17] MEDS: MIDODRINE HCL 5MG TABLET PO SCH ×3 (08:51→17:54)
[2020-09-17] MEDS: METOPROLOL TARTRATE 50MG TABLET GT SCH ×2 (09:00→21:00)
[2020-09-17] MEDS ORDERED: LACTULOSE 20G/30ML UDC PO NR (09:30)
[2020-09-17] MEDS: SULFAMETHOXAZOLE/TRIMETHOPRIM 320 MG in DEXT 5% WATER 500 ML IV SCH ×2 (14:10→22:00)
[2020-09-17 17:44] LABS: PLATELET ESTIMATE MARKEDLY DECREASED
[2020-09-18] VITALS (94 sets, daily range): BP systolic 86–124; BP diastolic 42–80
[2020-09-18] MEDS: IPRATROPIUM BROMIDE (0.02%) 0.5MG/2.5ML NEB HHN SCH ×4 (01:01→20:49)
[2020-09-18] MEDS: ACETYLCYSTEINE 100MG/ML 10% VIAL 4ML INH SCH ×2 (01:01→07:53)
[2020-09-18 05:37] LABS: HEMATOCRIT. 24.1 % (36.0-48.0); HEMOGLOBIN. 8.1 g/dL (12.0-16.0); MEAN CORPUSCULAR HEMOGLOBIN 27.9 pg (28.0-32.0); MEAN CORPUSCULAR VOLUME 82.9 fL (81.0-99.0); MEAN PLATELET VOLUME 8.5 fl (7.4-10.4); PLATELET 66 x1000/uL (130-400); RED BLOOD CELL COUNT 2.91 mill/uL (4.2-5.4)
[2020-09-18 05:42] LABS: CHLORIDE 96 mEq/L (98-107)
[2020-09-18] MEDS: METOCLOPRAMIDE HCL 10MG/2ML VIAL IV SCH ×4 (05:46→23:27)
[2020-09-18] MEDS: SULFAMETHOXAZOLE/TRIMETHOPRIM 320 MG in DEXT 5% WATER 500 ML IV SCH ×3 (05:46→21:36)
[2020-09-18] MEDS: AZTREONAM 2 GM in DEXT 5% WATER 100 ML IV SCH ×3 (05:46→23:34)
[2020-09-18] MEDS: VANCOMYCIN HCL 1000 MG/20 ML ORAL PO SCH ×4 (05:53→23:28)
[2020-09-18 08:50] LABS: BG BASE EXCESS 5.7 mmol/L (-2.0-2.0); BG CARBOXYHEMOGLOBIN 0.3 % (0.5-1.5); BG DEOXYHEMOGLOBIN 3.1 % (0.0-5.0); BG FRACTION INSPIRED OXYGEN 60; BG HCO3 ACT 30.4 mmol/L (22.0-26.0); BG METHEMOGLOBIN 0.1 % (0.0-1.5); BG OXYGEN SATURATION 96.9 % (92.0-98.5); BG OXYHEMOGLOBIN 96.5 % (94.0-97.0); BG PCO2 45.5 mmHg (35.0-45.0); BG PH 7.443 (7.350-7.450); BG PO2 93.3 mmHg (75.0-100.0); BG SAMPLE SITE RIGHT RADIAL; BG TOTAL HEMOGLOBIN 8.5 g/dL (12.0-18.0); BG VENT MODE VENT - PRVC
[2020-09-18] MEDS: PREDNISONE 20MG TABLET PO SCH (09:09)
[2020-09-18] MEDS: FAMOTIDINE 20MG TABLET GT SCH ×2 (09:10→21:38)
[2020-09-18] MEDS: MIDODRINE HCL 5MG TABLET PO SCH ×3 (09:10→17:28)
[2020-09-18] MEDS: METOPROLOL TARTRATE 50MG TABLET GT SCH ×2 (09:10→21:00)
[2020-09-18] MEDS: DOCUSATE SODIUM 100MG CAPSULE PO SCH ×2 (09:11→17:28)
[2020-09-18] MEDS: FENTANYL CITRATE/PF 2,500 MCG in SODIUM CHLORIDE 0.9% 200 ML IV PRN (13:26)
[2020-09-18 18:31] LABS: PLATELET ESTIMATE DECREASED
[2020-09-19] VITALS (68 sets, daily range): BP systolic 87–122; BP diastolic 36–78
[2020-09-19] MEDS: IPRATROPIUM BROMIDE (0.02%) 0.5MG/2.5ML NEB HHN SCH ×6 (00:35→19:53)
[2020-09-19] MEDS: METOCLOPRAMIDE HCL 10MG/2ML VIAL IV SCH ×4 (05:22→23:59)
[2020-09-19] MEDS: VANCOMYCIN HCL 1000 MG/20 ML ORAL PO SCH ×4 (05:22→23:59)
[2020-09-19 05:56] LABS: CHLORIDE 92 mEq/L (98-107)
[2020-09-19] MEDS: SULFAMETHOXAZOLE/TRIMETHOPRIM 320 MG in DEXT 5% WATER 500 ML IV SCH ×3 (05:59→21:53)
[2020-09-19 06:10] LABS: HEMATOCRIT. 22.3 % (36.0-48.0); HEMOGLOBIN. 7.5 g/dL (12.0-16.0); MEAN CORPUSCULAR HEMOGLOBIN 27.5 pg (28.0-32.0); MEAN PLATELET VOLUME 8.6 fl (7.4-10.4); PLATELET 81 x1000/uL (130-400); RED BLOOD CELL COUNT 2.72 mill/uL (4.2-5.4)
[2020-09-19 08:01] LABS: BG BASE EXCESS 4.2 mmol/L (-2.0-2.0); BG CARBOXYHEMOGLOBIN 0.3 % (0.5-1.5); BG DEOXYHEMOGLOBIN 4.2 % (0.0-5.0); BG METHEMOGLOBIN 0.7 % (0.0-1.5); BG OXYGEN SATURATION 95.8 % (92.0-98.5); BG OXYHEMOGLOBIN 94.8 % (94.0-97.0); BG PCO2 38.6 mmHg (35.0-45.0); BG PH 7.479 (7.350-7.450); BG PO2 83.9 mmHg (75.0-100.0); BG SAMPLE SITE RIGHT RADIAL; BG TOTAL HEMOGLOBIN 7.7 g/dL (12.0-18.0); BG VENT MODE VENT- PRVC
[2020-09-19] MEDS: ACETYLCYSTEINE 100MG/ML 10% VIAL 4ML INH SCH (08:47)
[2020-09-19] MEDS: METOPROLOL TARTRATE 50MG TABLET GT SCH ×2 (09:00→21:00)
[2020-09-19 09:11] LABS: PLATELET ESTIMATE DECREASED
[2020-09-19] MEDS: PREDNISONE 20MG TABLET PO SCH (10:46)
[2020-09-19] MEDS: MIDODRINE HCL 5MG TABLET PO SCH ×3 (10:46→17:14)
[2020-09-19] MEDS: DOCUSATE SODIUM 100MG CAPSULE PO SCH ×2 (10:46→17:13)
[2020-09-19] MEDS: FAMOTIDINE 20MG TABLET GT SCH ×2 (10:46→21:53)
[2020-09-19] MEDS: ACETAMINOPHEN 650MG/20.3ML UDC GT PRN (15:32)
[2020-09-19] MEDS: FENTANYL CITRATE/PF 2,500 MCG in SODIUM CHLORIDE 0.9% 200 ML IV PRN (18:06)
[2020-09-20] VITALS (86 sets, daily range): BP systolic 54–127; BP diastolic 26–92
[2020-09-20] MEDS: IPRATROPIUM BROMIDE (0.02%) 0.5MG/2.5ML NEB HHN SCH ×6 (03:50→23:59)
[2020-09-20 05:43] LABS: CHLORIDE 89 mEq/L (98-107)
[2020-09-20 05:45] LABS: HEMATOCRIT. 21.2 % (36.0-48.0); MEAN CORPUSCULAR HEMOGLOBIN 26.9 pg (28.0-32.0); MEAN CORPUSCULAR VOLUME 81.5 fL (81.0-99.0); PLATELET 93 x1000/uL (130-400); RED CELL DISTRIBUTION WIDTH 18.2 % (11.6-14.6)
[2020-09-20] MEDS: VANCOMYCIN HCL 1000 MG/20 ML ORAL PO SCH ×3 (06:20→18:05)
[2020-09-20] MEDS: METOCLOPRAMIDE HCL 10MG/2ML VIAL IV SCH ×3 (06:20→18:04)
[2020-09-20] MEDS: SULFAMETHOXAZOLE/TRIMETHOPRIM 320 MG in DEXT 5% WATER 500 ML IV SCH ×3 (06:20→22:04)
[2020-09-20] MEDS: MIDODRINE HCL 5MG TABLET PO SCH ×3 (08:40→18:04)
[2020-09-20] MEDS: FAMOTIDINE 20MG TABLET GT SCH ×2 (08:40→21:29)
[2020-09-20] MEDS: PREDNISONE 20MG TABLET PO SCH (08:40)
[2020-09-20] MEDS: METOPROLOL TARTRATE 50MG TABLET GT SCH ×2 (08:42→21:29)
[2020-09-20] MEDS: DOCUSATE SODIUM 100MG CAPSULE PO SCH ×2 (09:00→17:00)
[2020-09-20 09:52] LABS: BG BASE EXCESS 3.3 mmol/L (-2.0-2.0); BG CARBOXYHEMOGLOBIN 0.4 % (0.5-1.5); BG DEOXYHEMOGLOBIN 5.3 % (0.0-5.0); BG FRACTION INSPIRED OXYGEN 40; BG HCO3 ACT 26.8 mmol/L (22.0-26.0); BG METHEMOGLOBIN 0.3 % (0.0-1.5); BG OXYGEN SATURATION 94.7 % (92.0-98.5); BG PCO2 36.2 mmHg (35.0-45.0); BG PH 7.488 (7.350-7.450); BG PO2 73.7 mmHg (75.0-100.0); BG SAMPLE SITE RIGHT RADIAL; BG TOTAL HEMOGLOBIN 7.7 g/dL (12.0-18.0); BG VENT MODE AC/PRVC
[2020-09-20] MEDS: FENTANYL CITRATE/PF 2,500 MCG in SODIUM CHLORIDE 0.9% 200 ML IV PRN (16:57)
[2020-09-20 18:51] LABS: HEMATOCRIT 28.1 % (36.0-48.0); HEMOGLOBIN 9.7 g/dL (12.0-16.0)
[2020-09-20 19:03] LABS: INR 1.1; PROTHROMBIN TIME 11.8 sec (9.6-11.0)
[2020-09-21] VITALS (57 sets, daily range): BP systolic 79–159; BP diastolic 38–96
[2020-09-21] MEDS: METOCLOPRAMIDE HCL 10MG/2ML VIAL IV SCH ×5 (00:23→23:09)
[2020-09-21] MEDS: VANCOMYCIN HCL 1000 MG/20 ML ORAL PO SCH ×5 (01:33→23:09)
[2020-09-21] MEDS: IPRATROPIUM BROMIDE (0.02%) 0.5MG/2.5ML NEB HHN SCH ×5 (04:12→20:35)
[2020-09-21] MEDS: SULFAMETHOXAZOLE/TRIMETHOPRIM 320 MG in DEXT 5% WATER 500 ML IV SCH ×3 (06:12→21:01)
[2020-09-21 06:20] LABS: HEMATOCRIT. 27.5 % (36.0-48.0); HEMOGLOBIN. 9.2 g/dL (12.0-16.0); MEAN CORPUSCULAR HEMOGLOBIN 27.8 pg (28.0-32.0); MEAN CORPUSCULAR VOLUME 83.2 fL (81.0-99.0); MEAN PLATELET VOLUME 8.3 fl (7.4-10.4); PLATELET 104 x1000/uL (130-400); RED BLOOD CELL COUNT 3.31 mill/uL (4.2-5.4); RED CELL DISTRIBUTION WIDTH 16.8 % (11.6-14.6)
[2020-09-21 06:22] LABS: CHLORIDE 88 mEq/L (98-107)
[2020-09-21 07:49] LABS: BG BASE EXCESS 1.7 mmol/L (-2.0-2.0); BG CARBOXYHEMOGLOBIN 0.3 % (0.5-1.5); BG HCO3 ACT 24.4 mmol/L (22.0-26.0); BG METHEMOGLOBIN 0.8 % (0.0-1.5); BG OXYGEN SATURATION 94.9 % (92.0-98.5); BG OXYHEMOGLOBIN 93.9 % (94.0-97.0); BG PCO2 31.4 mmHg (35.0-45.0); BG PH 7.509 (7.350-7.450); BG PO2 72.9 mmHg (75.0-100.0); BG SAMPLE SITE RIGHT RADIAL; BG TOTAL HEMOGLOBIN 9.6 g/dL (12.0-18.0); BG VENT MODE VENT- PRVC
[2020-09-21] MEDS: METOPROLOL TARTRATE 50MG TABLET GT SCH ×2 (09:00→20:23)
[2020-09-21 09:03] LABS: PLATELET ESTIMATE DECREASED
[2020-09-21] MEDS: MIDODRINE HCL 5MG TABLET PO SCH ×3 (09:13→17:08)
[2020-09-21] MEDS: DOCUSATE SODIUM 100MG CAPSULE PO SCH ×2 (09:13→17:08)
[2020-09-21] MEDS: PREDNISONE 20MG TABLET PO SCH (09:13)
[2020-09-21] MEDS: FAMOTIDINE 20MG TABLET GT SCH ×2 (09:13→21:01)
[2020-09-21] MEDS: SODIUM CHLORIDE 0.9% 1,000 ML IV SCH (10:16)
[2020-09-21 10:53] LABS: PLATELET ESTIMATE SLIGHTLY DECREASED
[2020-09-22] VITALS (90 sets, daily range): BP systolic 82–127; BP diastolic 34–77
[2020-09-22] MEDS: IPRATROPIUM BROMIDE (0.02%) 0.5MG/2.5ML NEB HHN SCH ×6 (00:21→19:58)
[2020-09-22] MEDS: FENTANYL CITRATE/PF 2,500 MCG in SODIUM CHLORIDE 0.9% 200 ML IV PRN (01:08)
[2020-09-22 05:42] LABS: HEMATOCRIT. 28.1 % (36.0-48.0); HEMOGLOBIN. 9.2 g/dL (12.0-16.0); MEAN CORPUSCULAR HEMOGLOBIN 27.2 pg (28.0-32.0); MEAN CORPUSCULAR VOLUME 83.1 fL (81.0-99.0); MEAN PLATELET VOLUME 8.3 fl (7.4-10.4); PLATELET 85 x1000/uL (130-400); RED BLOOD CELL COUNT 3.39 mill/uL (4.2-5.4); RED CELL DISTRIBUTION WIDTH 17.2 % (11.6-14.6)
[2020-09-22 05:54] LABS: CHLORIDE 86 mEq/L (98-107)
[2020-09-22] MEDS: VANCOMYCIN HCL 1000 MG/20 ML ORAL PO SCH ×4 (05:55→23:15)
[2020-09-22] MEDS: SULFAMETHOXAZOLE/TRIMETHOPRIM 320 MG in DEXT 5% WATER 500 ML IV SCH ×3 (05:55→21:04)
[2020-09-22] MEDS: METOCLOPRAMIDE HCL 10MG/2ML VIAL IV SCH ×4 (05:55→23:14)
[2020-09-22 07:42] LABS: BG BASE EXCESS -0.4 mmol/L (-2.0-2.0); BG CARBOXYHEMOGLOBIN 0.3 % (0.5-1.5); BG DEOXYHEMOGLOBIN 5.1 % (0.0-5.0); BG HCO3 ACT 23.5 mmol/L (22.0-26.0); BG METHEMOGLOBIN 0.7 % (0.0-1.5); BG OXYGEN SATURATION 94.8 % (92.0-98.5); BG OXYHEMOGLOBIN 93.9 % (94.0-97.0); BG PCO2 35.7 mmHg (35.0-45.0); BG PH 7.437 (7.350-7.450); BG PO2 78.8 mmHg (75.0-100.0); BG SAMPLE SITE RIGHT RADIAL; BG TOTAL HEMOGLOBIN 9.8 g/dL (12.0-18.0); BG VENT MODE VENT- PRVC
[2020-09-22] MEDS: SODIUM CHLORIDE 0.9% 1,000 ML IV SCH (08:35)
[2020-09-22] MEDS: DOCUSATE SODIUM 100MG CAPSULE PO SCH ×2 (08:35→16:59)
[2020-09-22] MEDS: MIDODRINE HCL 5MG TABLET PO SCH ×3 (08:35→16:59)
[2020-09-22] MEDS: FAMOTIDINE 20MG TABLET GT SCH ×2 (08:35→20:10)
[2020-09-22] MEDS: PREDNISONE 20MG TABLET PO SCH (08:36)
[2020-09-22] MEDS ORDERED: BISACODYL 10MG SUPP PR PRN (08:45)
[2020-09-22] MEDS ORDERED: POLYETHYLENE GLYCOL 3350 (17GM) 1 DOSE PACK PO SCH (09:00)
[2020-09-22] MEDS: METOPROLOL TARTRATE 50MG TABLET GT SCH ×2 (09:00→20:07)
[2020-09-22] MEDS ORDERED: DOCUSATE SODIUM SUGAR FREE 100MG/10ML UDC NG SCH (09:00)
[2020-09-22] MEDS: LEVETIRACETAM 500MG TABLET PO SCH ×2 (10:28→20:10)
[2020-09-22 10:37] LABS: PLATELET ESTIMATE DECREASED
[2020-09-22 10:40] LABS: SODIUM URINE RANDOM 45 mEq/L
[2020-09-23] VITALS (90 sets, daily range): BP systolic 74–120; BP diastolic 28–78
[2020-09-23] MEDS: IPRATROPIUM BROMIDE (0.02%) 0.5MG/2.5ML NEB HHN SCH ×5 (00:14→20:24)
[2020-09-23] MEDS: VANCOMYCIN HCL 1000 MG/20 ML ORAL PO SCH ×4 (05:37→23:43)
[2020-09-23] MEDS: METOCLOPRAMIDE HCL 10MG/2ML VIAL IV SCH ×4 (05:37→23:42)
[2020-09-23 05:40] LABS: HEMATOCRIT. 26.2 % (36.0-48.0); HEMOGLOBIN. 8.7 g/dL (12.0-16.0); MEAN CORPUSCULAR HEMOGLOBIN 27.5 pg (28.0-32.0); MEAN CORPUSCULAR VOLUME 83.3 fL (81.0-99.0); MEAN PLATELET VOLUME 7.9 fl (7.4-10.4); PLATELET 91 x1000/uL (130-400); RED BLOOD CELL COUNT 3.15 mill/uL (4.2-5.4); RED CELL DISTRIBUTION WIDTH 17.3 % (11.6-14.6)
[2020-09-23] MEDS: SULFAMETHOXAZOLE/TRIMETHOPRIM 320 MG in DEXT 5% WATER 500 ML IV SCH ×2 (05:46→13:26)
[2020-09-23 05:48] LABS: CHLORIDE 88 mEq/L (98-107)
[2020-09-23 05:54] LABS: PHOSPHORUS 2.9 mg/dL (2.5-4.9)
[2020-09-23] MEDS: FENTANYL CITRATE/PF 2,500 MCG in SODIUM CHLORIDE 0.9% 200 ML IV PRN (07:46)
[2020-09-23] MEDS: METOPROLOL TARTRATE 50MG TABLET GT SCH ×2 (08:45→20:38)
[2020-09-23] MEDS: DOCUSATE SODIUM 100MG CAPSULE PO SCH ×2 (08:46→17:28)
[2020-09-23] MEDS: SODIUM CHLORIDE 0.9% 1,000 ML IV SCH ×2 (08:46→20:39)
[2020-09-23] MEDS: LEVETIRACETAM 500MG TABLET PO SCH ×2 (08:47→20:38)
[2020-09-23] MEDS: FAMOTIDINE 20MG TABLET GT SCH ×2 (08:47→20:37)
[2020-09-23] MEDS: PREDNISONE 20MG TABLET PO SCH (08:47)
[2020-09-23] MEDS: MIDODRINE HCL 5MG TABLET PO SCH ×3 (08:48→17:28)
[2020-09-23 09:10] LABS: BG BASE EXCESS -1.6 mmol/L (-2.0-2.0); BG CARBOXYHEMOGLOBIN 0.3 % (0.5-1.5); BG FRACTION INSPIRED OXYGEN 55; BG HCO3 ACT 21.5 mmol/L (22.0-26.0); BG METHEMOGLOBIN 0.4 % (0.0-1.5); BG OXYHEMOGLOBIN 97.3 % (94.0-97.0); BG PCO2 30.5 mmHg (35.0-45.0); BG PH 7.467 (7.350-7.450); BG PO2 103.8 mmHg (75.0-100.0); BG SAMPLE SITE RIGHT BRACHIAL; BG TOTAL HEMOGLOBIN 9.4 g/dL (12.0-18.0); BG VENT MODE PRVC
[2020-09-23 09:30] LABS: PLATELET ESTIMATE DECREASED
[2020-09-23] MEDS ORDERED: MAGNESIUM 2 G PREMIX 50 ML IV NR (10:30)
[2020-09-23 11:03] LABS: T4 FREE 0.51 ng/dL (0.76-1.46)
[2020-09-23] MEDS: ACETYLCYSTEINE 100MG/ML 10% VIAL 4ML INH SCH (12:55)
[2020-09-23] MEDS: AZTREONAM 2 GM in DEXT 5% WATER 100 ML IV SCH (17:28)
[2020-09-24] VITALS (73 sets, daily range): BP systolic 88–118; BP diastolic 51–75
[2020-09-24] MEDS: IPRATROPIUM BROMIDE (0.02%) 0.5MG/2.5ML NEB HHN SCH ×6 (00:18→19:38)
[2020-09-24] MEDS: ACETYLCYSTEINE 100MG/ML 10% VIAL 4ML INH SCH ×3 (00:19→15:49)
[2020-09-24] MEDS: ACETAMINOPHEN 650MG/20.3ML UDC GT PRN (00:52)
[2020-09-24 05:29] LABS: HEMATOCRIT. 25.6 % (36.0-48.0); HEMOGLOBIN. 8.2 g/dL (12.0-16.0); MEAN CORPUSCULAR HEMOGLOBIN 27.4 pg (28.0-32.0); MEAN CORPUSCULAR VOLUME 85.2 fL (81.0-99.0); MEAN PLATELET VOLUME 7.8 fl (7.4-10.4); PLATELET 75 x1000/uL (130-400); RED CELL DISTRIBUTION WIDTH 17.7 % (11.6-14.6)
[2020-09-24] MEDS: METOCLOPRAMIDE HCL 10MG/2ML VIAL IV SCH ×3 (05:32→17:38)
[2020-09-24] MEDS: VANCOMYCIN HCL 1000 MG/20 ML ORAL PO SCH ×3 (05:33→17:41)
[2020-09-24] MEDS: AZTREONAM 2 GM in DEXT 5% WATER 100 ML IV SCH ×2 (05:33→17:41)
[2020-09-24 05:35] LABS: CHLORIDE 93 mEq/L (98-107)
[2020-09-24 05:41] LABS: PHOSPHORUS 3.6 mg/dL (2.5-4.9)
[2020-09-24] MEDS: SODIUM CHLORIDE 0.9% 1,000 ML IV SCH (05:47)
[2020-09-24 07:06] LABS: BG BASE EXCESS -0.3 mmol/L (-2.0-2.0); BG CARBOXYHEMOGLOBIN 0.5 % (0.5-1.5); BG DEOXYHEMOGLOBIN 3.6 % (0.0-5.0); BG HCO3 ACT 23.5 mmol/L (22.0-26.0); BG METHEMOGLOBIN 0.7 % (0.0-1.5); BG OXYGEN SATURATION 96.4 % (92.0-98.5); BG OXYHEMOGLOBIN 95.2 % (94.0-97.0); BG PCO2 34.9 mmHg (35.0-45.0); BG PH 7.446 (7.350-7.450); BG SAMPLE SITE RIGHT RADIAL; BG TOTAL HEMOGLOBIN 9.5 g/dL (12.0-18.0); BG VENT MODE VENT- PRVC
[2020-09-24] MEDS: PREDNISONE 20MG TABLET PO SCH (09:29)
[2020-09-24] MEDS: FAMOTIDINE 20MG TABLET GT SCH ×2 (09:29→20:05)
[2020-09-24] MEDS: LEVETIRACETAM 500MG TABLET PO SCH ×2 (09:29→20:05)
[2020-09-24] MEDS: DOCUSATE SODIUM 100MG CAPSULE PO SCH ×2 (09:30→17:38)
[2020-09-24] MEDS: METOPROLOL TARTRATE 50MG TABLET GT SCH ×3 (09:30→20:05)
[2020-09-24] MEDS: MIDODRINE HCL 5MG TABLET PO SCH ×3 (09:30→17:38)
[2020-09-24] MEDS: FENTANYL CITRATE/PF 2,500 MCG in SODIUM CHLORIDE 0.9% 200 ML IV PRN (12:43)
[2020-09-24 17:36] LABS: PLATELET ESTIMATE DECREASED
[2020-09-25] VITALS (73 sets, daily range): BP systolic 84–108; BP diastolic 39–71
[2020-09-25] MEDS: VANCOMYCIN HCL 1000 MG/20 ML ORAL PO SCH ×5 (00:05→23:35)
[2020-09-25] MEDS: METOCLOPRAMIDE HCL 10MG/2ML VIAL IV SCH ×5 (00:05→23:35)
[2020-09-25] MEDS: ACETYLCYSTEINE 100MG/ML 10% VIAL 4ML INH SCH ×3 (00:18→16:10)
[2020-09-25] MEDS: IPRATROPIUM BROMIDE (0.02%) 0.5MG/2.5ML NEB HHN SCH ×6 (00:18→21:18)
[2020-09-25] MEDS: SODIUM CHLORIDE 0.9% 1,000 ML IV SCH ×2 (02:50→23:34)
[2020-09-25] MEDS: AZTREONAM 2 GM in DEXT 5% WATER 100 ML IV SCH ×2 (05:03→17:40)
[2020-09-25 05:39] LABS: HEMATOCRIT. 26.2 % (36.0-48.0); HEMOGLOBIN. 8.3 g/dL (12.0-16.0); MEAN CORPUSCULAR HEMOGLOBIN 27.2 pg (28.0-32.0); MEAN CORPUSCULAR VOLUME 85.8 fL (81.0-99.0); MEAN PLATELET VOLUME 7.8 fl (7.4-10.4); PLATELET 88 x1000/uL (130-400); RED BLOOD CELL COUNT 3.05 mill/uL (4.2-5.4); RED CELL DISTRIBUTION WIDTH 17.8 % (11.6-14.6)
[2020-09-25 05:42] LABS: CHLORIDE 94 mEq/L (98-107)
[2020-09-25 05:50] LABS: PHOSPHORUS 3.4 mg/dL (2.5-4.9)
[2020-09-25 09:44] LABS: BG BASE EXCESS -2.6 mmol/L (-2.0-2.0); BG CARBOXYHEMOGLOBIN 0.3 % (0.5-1.5); BG DEOXYHEMOGLOBIN 3.9 % (0.0-5.0); BG FRACTION INSPIRED OXYGEN 50; BG HCO3 ACT 24.5 mmol/L (22.0-26.0); BG METHEMOGLOBIN 0.3 % (0.0-1.5); BG OXYGEN SATURATION 96.1 % (92.0-98.5); BG OXYHEMOGLOBIN 95.5 % (94.0-97.0); BG PCO2 55.5 mmHg (35.0-45.0); BG PH 7.263 (7.350-7.450); BG PO2 89.7 mmHg (75.0-100.0); BG SAMPLE SITE RIGHT RADIAL; BG TOTAL HEMOGLOBIN 8.5 g/dL (12.0-18.0); BG VENT MODE VENT - SIMV
[2020-09-25] MEDS: METOPROLOL TARTRATE 50MG TABLET GT SCH (09:53)
[2020-09-25] MEDS: FAMOTIDINE 20MG TABLET GT SCH ×2 (09:54→20:04)
[2020-09-25] MEDS: MIDODRINE HCL 5MG TABLET PO SCH ×3 (09:54→17:40)
[2020-09-25] MEDS: LEVETIRACETAM 500MG TABLET PO SCH ×2 (09:54→20:04)
[2020-09-25] MEDS: PREDNISONE 20MG TABLET PO SCH (09:54)
[2020-09-25] MEDS: DOCUSATE SODIUM 100MG CAPSULE PO SCH ×2 (09:55→17:40)
[2020-09-25 10:25] LABS: NUCLEATED RED BLOOD CELLS 1 /100 WBC; PLATELET ESTIMATE DECREASED
[2020-09-25 10:48] LABS: BG BASE EXCESS -1.4 mmol/L (-2.0-2.0); BG CARBOXYHEMOGLOBIN 0.4 % (0.5-1.5); BG DEOXYHEMOGLOBIN 7.3 % (0.0-5.0); BG FRACTION INSPIRED OXYGEN 40; BG HCO3 ACT 26.2 mmol/L (22.0-26.0); BG METHEMOGLOBIN 0.5 % (0.0-1.5); BG OXYGEN SATURATION 92.6 % (92.0-98.5); BG OXYHEMOGLOBIN 91.8 % (94.0-97.0); BG PCO2 60.6 mmHg (35.0-45.0); BG PH 7.254 (7.350-7.450); BG PO2 73.1 mmHg (75.0-100.0); BG SAMPLE SITE RIGHT RADIAL; BG TOTAL HEMOGLOBIN 9.4 g/dL (12.0-18.0); BG VENT MODE VENT - CPAP
[2020-09-25] MEDS: FENTANYL CITRATE/PF 2,500 MCG in SODIUM CHLORIDE 0.9% 200 ML IV PRN (12:49)
[2020-09-25] MEDS: MICAFUNGIN 100 MG in SODIUM CHLORIDE 0.9% 100 ML IV SCH (15:48)
[2020-09-26] VITALS (79 sets, daily range): BP systolic 87–123; BP diastolic 49–86
[2020-09-26] MEDS: ACETYLCYSTEINE 100MG/ML 10% VIAL 4ML INH SCH ×4 (00:25→20:31)
[2020-09-26] MEDS: IPRATROPIUM BROMIDE (0.02%) 0.5MG/2.5ML NEB HHN SCH ×6 (00:33→20:31)
[2020-09-26] MEDS: AZTREONAM 2 GM in DEXT 5% WATER 100 ML IV SCH ×2 (04:45→17:26)
[2020-09-26] MEDS: MORPHINE SULFATE 2 MG/ML CPJ (NOT FOR IM USE) IV PRN ×2 (04:46→10:30)
[2020-09-26] MEDS: LORAZEPAM 2MG/ML CPJ IV PRN (05:14)
[2020-09-26] MEDS: VANCOMYCIN HCL 1000 MG/20 ML ORAL PO SCH ×4 (05:14→23:04)
[2020-09-26] MEDS: METOCLOPRAMIDE HCL 10MG/2ML VIAL IV SCH ×4 (05:14→23:04)
[2020-09-26 05:52] LABS: HEMATOCRIT. 27.4 % (36.0-48.0); HEMOGLOBIN. 8.5 g/dL (12.0-16.0); MEAN CORPUSCULAR HEMOGLOBIN 26.8 pg (28.0-32.0); MEAN CORPUSCULAR VOLUME 86.7 fL (81.0-99.0); MEAN PLATELET VOLUME 7.9 fl (7.4-10.4); PLATELET 88 x1000/uL (130-400); RED BLOOD CELL COUNT 3.16 mill/uL (4.2-5.4); RED CELL DISTRIBUTION WIDTH 17.8 % (11.6-14.6)
[2020-09-26 05:57] LABS: CHLORIDE 96 mEq/L (98-107)
[2020-09-26 06:05] LABS: PHOSPHORUS 2.9 mg/dL (2.5-4.9)
[2020-09-26] MEDS: DOCUSATE SODIUM 100MG CAPSULE PO SCH ×2 (09:00→17:26)
[2020-09-26 09:47] LABS: BG BASE EXCESS -0.6 mmol/L (-2.0-2.0); BG CARBOXYHEMOGLOBIN 0.3 % (0.5-1.5); BG FRACTION INSPIRED OXYGEN 40; BG HCO3 ACT 25.5 mmol/L (22.0-26.0); BG METHEMOGLOBIN 0.3 % (0.0-1.5); BG OXYHEMOGLOBIN 96.4 % (94.0-97.0); BG PCO2 49.2 mmHg (35.0-45.0); BG PH 7.333 (7.350-7.450); BG PO2 94.8 mmHg (75.0-100.0); BG SAMPLE SITE RIGHT RADIAL; BG TOTAL HEMOGLOBIN 9.4 g/dL (12.0-18.0); BG VENT MODE VENT - SIMV
[2020-09-26] MEDS: PREDNISONE 20MG TABLET PO SCH (10:27)
[2020-09-26] MEDS: METOPROLOL TARTRATE 50MG TABLET GT SCH ×2 (10:28→20:31)
[2020-09-26] MEDS: FAMOTIDINE 20MG TABLET GT SCH ×2 (10:28→20:36)
[2020-09-26] MEDS: LEVETIRACETAM 500MG TABLET PO SCH ×2 (10:28→20:36)
[2020-09-26] MEDS: MIDODRINE HCL 5MG TABLET PO SCH ×3 (10:28→17:26)
[2020-09-26 12:38] LABS: PLATELET ESTIMATE DECREASED
[2020-09-26] MEDS ORDERED: NALOXONE HCL 0.4MG/ML VIAL IV PRN (15:15)
[2020-09-26] MEDS: MICAFUNGIN 100 MG in SODIUM CHLORIDE 0.9% 100 ML IV SCH (15:37)
[2020-09-26] MEDS: SODIUM CHLORIDE 0.9% 1,000 ML IV SCH (19:26)
[2020-09-26] MEDS ORDERED: SULFAMETHOXAZOLE IV SCH (21:00)
[2020-09-26] MEDS ORDERED: TRIMETHOPRIM IV SCH (21:00)
[2020-09-26] MEDS ORDERED: WATER IV SCH (21:00)
[2020-09-26] MEDS ORDERED: DEXT 5% IV SCH (21:00)
[2020-09-27] VITALS (97 sets, daily range): BP systolic 83–139; BP diastolic 49–91
[2020-09-27] MEDS: MORPHINE SULFATE 2 MG/ML CPJ (NOT FOR IM USE) IV PRN ×3 (00:18→23:56)
[2020-09-27] MEDS: IPRATROPIUM BROMIDE (0.02%) 0.5MG/2.5ML NEB HHN SCH ×6 (00:23→20:19)
[2020-09-27] MEDS: LORAZEPAM 2MG/ML CPJ IV PRN (03:39)
[2020-09-27] MEDS: AZTREONAM 2 GM in DEXT 5% WATER 100 ML IV SCH ×2 (04:39→18:50)
[2020-09-27] MEDS: VANCOMYCIN HCL 1000 MG/20 ML ORAL PO SCH ×4 (05:08→23:12)
[2020-09-27] MEDS: METOCLOPRAMIDE HCL 10MG/2ML VIAL IV SCH ×4 (05:08→23:12)
[2020-09-27 05:17] LABS: HEMATOCRIT. 27.1 % (36.0-48.0); HEMOGLOBIN. 8.5 g/dL (12.0-16.0); MEAN CORPUSCULAR HEMOGLOBIN 27.1 pg (28.0-32.0); MEAN CORPUSCULAR VOLUME 86.1 fL (81.0-99.0); MEAN PLATELET VOLUME 7.4 fl (7.4-10.4); PLATELET 97 x1000/uL (130-400); RED BLOOD CELL COUNT 3.15 mill/uL (4.2-5.4); RED CELL DISTRIBUTION WIDTH 17.5 % (11.6-14.6)
[2020-09-27 05:23] LABS: CHLORIDE 95 mEq/L (98-107)
[2020-09-27] MEDS: ACETAMINOPHEN 650MG/20.3ML UDC GT PRN ×2 (05:46→20:59)
[2020-09-27] MEDS: SULFAMETHOXAZOLE/TRIMETHOPRIM 320 MG in DEXT 5% WATER 500 ML IV SCH ×4 (05:57→21:00)
[2020-09-27] MEDS: ACETYLCYSTEINE 100MG/ML 10% VIAL 4ML INH SCH ×2 (07:59→15:35)
[2020-09-27 08:03] LABS: BG BASE EXCESS -0.4 mmol/L (-2.0-2.0); BG CARBOXYHEMOGLOBIN 0.6 % (0.5-1.5); BG DEOXYHEMOGLOBIN 5.4 % (0.0-5.0); BG HCO3 ACT 25.5 mmol/L (22.0-26.0); BG METHEMOGLOBIN 0.6 % (0.0-1.5); BG OXYGEN SATURATION 94.5 % (92.0-98.5); BG OXYHEMOGLOBIN 93.4 % (94.0-97.0); BG PCO2 48.2 mmHg (35.0-45.0); BG PH 7.342 (7.350-7.450); BG PO2 74.2 mmHg (75.0-100.0); BG SAMPLE SITE RIGHT RADIAL; BG TOTAL HEMOGLOBIN 8.6 g/dL (12.0-18.0); BG VENT MODE VENT - AC
[2020-09-27] MEDS: METOPROLOL TARTRATE 50MG TABLET GT SCH ×2 (09:21→20:59)
[2020-09-27] MEDS: FAMOTIDINE 20MG TABLET GT SCH ×2 (09:21→21:00)
[2020-09-27] MEDS: DOCUSATE SODIUM 100MG CAPSULE PO SCH ×2 (09:21→18:48)
[2020-09-27] MEDS: MIDODRINE HCL 5MG TABLET PO SCH ×3 (09:21→18:49)
[2020-09-27] MEDS: LEVETIRACETAM 500MG TABLET PO SCH ×2 (09:22→20:59)
[2020-09-27] MEDS: PREDNISONE 20MG TABLET PO SCH (09:22)
[2020-09-27 10:14] LABS: PLATELET ESTIMATE DECREASED
[2020-09-27] MEDS: MICAFUNGIN 100 MG in SODIUM CHLORIDE 0.9% 100 ML IV SCH (16:46)
[2020-09-28] VITALS (84 sets, daily range): BP systolic 97–133; BP diastolic 49–81
[2020-09-28] MEDS: ACETYLCYSTEINE 100MG/ML 10% VIAL 4ML INH SCH ×2 (00:12→08:23)
[2020-09-28] MEDS: IPRATROPIUM BROMIDE (0.02%) 0.5MG/2.5ML NEB HHN SCH ×6 (00:12→21:58)
[2020-09-28] MEDS: SODIUM CHLORIDE 0.9% 1,000 ML IV SCH (01:22)
[2020-09-28] MEDS: AZTREONAM 2 GM in DEXT 5% WATER 100 ML IV SCH (04:08)
[2020-09-28] MEDS: METOCLOPRAMIDE HCL 10MG/2ML VIAL IV SCH ×3 (05:13→19:38)
[2020-09-28] MEDS: VANCOMYCIN HCL 1000 MG/20 ML ORAL PO SCH ×3 (05:14→19:39)
[2020-09-28 05:17] LABS: HEMATOCRIT. 23.7 % (36.0-48.0); HEMOGLOBIN. 7.5 g/dL (12.0-16.0); MEAN CORPUSCULAR VOLUME 85.4 fL (81.0-99.0); MEAN PLATELET VOLUME 7.3 fl (7.4-10.4); PLATELET 73 x1000/uL (130-400); RED BLOOD CELL COUNT 2.78 mill/uL (4.2-5.4); RED CELL DISTRIBUTION WIDTH 17.8 % (11.6-14.6)
[2020-09-28] MEDS: SULFAMETHOXAZOLE/TRIMETHOPRIM 320 MG in DEXT 5% WATER 500 ML IV SCH (05:41)
[2020-09-28 10:19] LABS: BG BASE EXCESS -0.2 mmol/L (-2.0-2.0); BG CARBOXYHEMOGLOBIN 0.1 % (0.5-1.5); BG DEOXYHEMOGLOBIN 2.3 % (0.0-5.0); BG FRACTION INSPIRED OXYGEN 40; BG HCO3 ACT 25.3 mmol/L (22.0-26.0); BG METHEMOGLOBIN 0.7 % (0.0-1.5); BG OXYGEN SATURATION 97.7 % (92.0-98.5); BG OXYHEMOGLOBIN 96.9 % (94.0-97.0); BG PCO2 45.7 mmHg (35.0-45.0); BG PH 7.361 (7.350-7.450); BG SAMPLE SITE RIGHT RADIAL; BG TOTAL HEMOGLOBIN 8.3 g/dL (12.0-18.0); BG VENT MODE VENT - AC
[2020-09-28] MEDS: METOPROLOL TARTRATE 50MG TABLET GT SCH ×2 (10:54→21:00)
[2020-09-28] MEDS: MIDODRINE HCL 5MG TABLET PO SCH ×3 (11:00→19:39)
[2020-09-28] MEDS: FAMOTIDINE 20MG TABLET GT SCH ×2 (11:00→21:32)
[2020-09-28] MEDS: LEVETIRACETAM 500MG TABLET PO SCH ×2 (11:00→21:32)
[2020-09-28] MEDS: PREDNISONE 20MG TABLET PO SCH (11:01)
[2020-09-28] MEDS: DOCUSATE SODIUM 100MG CAPSULE PO SCH ×2 (11:01→19:38)
[2020-09-28 12:00] LABS: CHLORIDE 93 mEq/L (98-107)
[2020-09-28 12:51] LABS: PLATELET ESTIMATE DECREASED
[2020-09-28] MEDS ORDERED: SULFAMETHOXAZOLE/TRIMETHOPRIM 320 MG in DEXT 5% WATER 500 ML IV SCH (14:00)
[2020-09-28] MEDS ORDERED: SULFAMETHOXAZOLE IV SCH (14:00)
[2020-09-28] MEDS ORDERED: SODIUM CHLORIDE 0.9% IV SCH (14:00)
[2020-09-28] MEDS ORDERED: TRIMETHOPRIM IV SCH (14:00)
[2020-09-28] MEDS: [UNRECOGNIZED DRUG - OTHER] GT SCH ×2 (14:48→22:43)
[2020-09-28] MEDS: MICAFUNGIN 100 MG in SODIUM CHLORIDE 0.9% 100 ML IV SCH (15:02)
[2020-09-28] MEDS: AZTREONAM 2 GM in SODIUM CHLORIDE 0.9% 100 ML IV SCH (19:41)
[2020-09-29] VITALS (72 sets, daily range): BP systolic 98–124; BP diastolic 51–79
[2020-09-29] MEDS: VANCOMYCIN HCL 1000 MG/20 ML ORAL PO SCH ×4 (00:16→16:36)
[2020-09-29] MEDS: METOCLOPRAMIDE HCL 10MG/2ML VIAL IV SCH ×4 (00:16→16:36)
[2020-09-29] MEDS: IPRATROPIUM BROMIDE (0.02%) 0.5MG/2.5ML NEB HHN SCH ×6 (00:34→20:07)
[2020-09-29 04:34] LABS: HEMATOCRIT. 25.2 % (36.0-48.0); HEMOGLOBIN. 7.4 g/dL (12.0-16.0); MEAN CORPUSCULAR HEMOGLOBIN 26.7 pg (28.0-32.0); MEAN CORPUSCULAR VOLUME 90.3 fL (81.0-99.0); MEAN PLATELET VOLUME 7.6 fl (7.4-10.4); PLATELET 70 x1000/uL (130-400); RED BLOOD CELL COUNT 2.79 mill/uL (4.2-5.4)
[2020-09-29 04:41] LABS: CHLORIDE 94 mEq/L (98-107)
[2020-09-29 04:52] LABS: PHOSPHORUS 2.9 mg/dL (2.5-4.9)
[2020-09-29] MEDS: AZTREONAM 2 GM in SODIUM CHLORIDE 0.9% 100 ML IV SCH ×2 (05:15→16:36)
[2020-09-29] MEDS: [UNRECOGNIZED DRUG - OTHER] GT SCH ×3 (05:16→21:45)
[2020-09-29] MEDS: ACETAMINOPHEN 650MG/20.3ML UDC GT PRN ×2 (05:19→21:44)
[2020-09-29] MEDS ORDERED: SODIUM POLYSTYRENE SULFONATE 15 G/60 ML BOT PO NR (08:00)
[2020-09-29] MEDS: COLISTIMETHATE SODIUM 150MG/VIAL INH SCH ×2 (08:42→20:18)
[2020-09-29] MEDS: METOPROLOL TARTRATE 50MG TABLET GT SCH ×2 (09:00→21:00)
[2020-09-29] MEDS: DOCUSATE SODIUM 100MG CAPSULE PO SCH ×2 (09:00→16:37)
[2020-09-29 09:29] LABS: BG BASE EXCESS -1.3 mmol/L (-2.0-2.0); BG CARBOXYHEMOGLOBIN 0.4 % (0.5-1.5); BG DEOXYHEMOGLOBIN 6.3 % (0.0-5.0); BG FRACTION INSPIRED OXYGEN 40; BG HCO3 ACT 24.4 mmol/L (22.0-26.0); BG METHEMOGLOBIN 0.4 % (0.0-1.5); BG OXYGEN SATURATION 93.6 % (92.0-98.5); BG OXYHEMOGLOBIN 92.9 % (94.0-97.0); BG PCO2 46.1 mmHg (35.0-45.0); BG PH 7.342 (7.350-7.450); BG PO2 68.9 mmHg (75.0-100.0); BG SAMPLE SITE RIGHT RADIAL; BG VENT MODE VENT - AC
[2020-09-29] MEDS ORDERED: MAGNESIUM 2 G PREMIX 50 ML IV NR (10:00)
[2020-09-29] MEDS: PREDNISONE 20MG TABLET PO SCH (10:16)
[2020-09-29] MEDS: MIDODRINE HCL 5MG TABLET PO SCH ×3 (10:17→16:37)
[2020-09-29] MEDS: FAMOTIDINE 20MG TABLET GT SCH ×2 (10:17→21:44)
[2020-09-29] MEDS: LEVETIRACETAM 500MG/5ML CUP GT SCH ×2 (10:17→21:45)
[2020-09-29] MEDS: MICAFUNGIN 100 MG in SODIUM CHLORIDE 0.9% 100 ML IV SCH (12:27)
[2020-09-29 12:35] LABS: PLATELET ESTIMATE DECREASED
[2020-09-29] MEDS ORDERED: SODIUM BICARBONATE 8.4% 1 MEQ/ML 50ML SYR IV NR (14:30)
[2020-09-29] MEDS ORDERED: FUROSEMIDE 20MG/2ML VIAL IVP NR (14:30)
[2020-09-29] MEDS: LEVOTHYROXINE SODIUM 25MCG TABLET PO SCH (15:01)
[2020-09-30] VITALS (57 sets, daily range): BP systolic 88–118; BP diastolic 42–71
[2020-09-30] MEDS: IPRATROPIUM BROMIDE (0.02%) 0.5MG/2.5ML NEB HHN SCH ×5 (00:13→20:40)
[2020-09-30] MEDS: METOCLOPRAMIDE HCL 10MG/2ML VIAL IV SCH ×5 (00:15→23:42)
[2020-09-30] MEDS: VANCOMYCIN HCL 1000 MG/20 ML ORAL PO SCH ×5 (00:16→23:43)
[2020-09-30 05:29] LABS: HEMATOCRIT. 23.3 % (36.0-48.0); HEMOGLOBIN. 7.1 g/dL (12.0-16.0); MEAN CORPUSCULAR VOLUME 85.3 fL (81.0-99.0); MEAN PLATELET VOLUME 7.3 fl (7.4-10.4); PLATELET 68 x1000/uL (130-400); RED BLOOD CELL COUNT 2.73 mill/uL (4.2-5.4); RED CELL DISTRIBUTION WIDTH 17.8 % (11.6-14.6)
[2020-09-30 05:31] LABS: CHLORIDE 93 mEq/L (98-107)
[2020-09-30] MEDS: AZTREONAM 2 GM in SODIUM CHLORIDE 0.9% 100 ML IV SCH ×2 (05:37→16:58)
[2020-09-30] MEDS: [UNRECOGNIZED DRUG - OTHER] GT SCH ×3 (05:37→21:07)
[2020-09-30] MEDS: LEVOTHYROXINE SODIUM 25MCG TABLET PO SCH (05:45)
[2020-09-30] MEDS: COLISTIMETHATE SODIUM 150MG/VIAL INH SCH ×2 (07:40→20:24)
[2020-09-30] MEDS: DOCUSATE SODIUM 100MG CAPSULE PO SCH ×2 (08:23→16:48)
[2020-09-30] MEDS: FAMOTIDINE 20MG TABLET GT SCH ×2 (08:28→21:07)
[2020-09-30] MEDS: LEVETIRACETAM 500MG/5ML CUP GT SCH ×2 (08:28→21:06)
[2020-09-30] MEDS: METOPROLOL TARTRATE 50MG TABLET GT SCH ×2 (08:29→21:06)
[2020-09-30] MEDS: MIDODRINE HCL 5MG TABLET PO SCH ×3 (08:29→16:58)
[2020-09-30] MEDS: PREDNISONE 20MG TABLET PO SCH (08:29)
[2020-09-30 09:07] LABS: BG BASE EXCESS 2.1 mmol/L (-2.0-2.0); BG CARBOXYHEMOGLOBIN 0.4 % (0.5-1.5); BG DEOXYHEMOGLOBIN 4.9 % (0.0-5.0); BG FRACTION INSPIRED OXYGEN 40; BG HCO3 ACT 28.6 mmol/L (22.0-26.0); BG OXYHEMOGLOBIN 93.7 % (94.0-97.0); BG PCO2 56.7 mmHg (35.0-45.0); BG PH 7.321 (7.350-7.450); BG PO2 79.5 mmHg (75.0-100.0); BG SAMPLE SITE RIGHT BRACHIAL; BG TOTAL HEMOGLOBIN 7.9 g/dL (12.0-18.0); BG VENT MODE VENT - AC
[2020-09-30 12:36] LABS: PLATELET ESTIMATE MARKEDLY DECREASED
[2020-09-30] MEDS: MICAFUNGIN 100 MG in SODIUM CHLORIDE 0.9% 100 ML IV SCH (14:32)
[2020-09-30 17:28] LABS: MEAN CORPUSCULAR HEMOGLOBIN 25.7 pg (28.0-32.0); MEAN CORPUSCULAR VOLUME 84.7 fL (81.0-99.0); MEAN PLATELET VOLUME 7.4 fl (7.4-10.4); PLATELET 70 x1000/uL (130-400); RED CELL DISTRIBUTION WIDTH 17.5 % (11.6-14.6)
[2020-09-30 17:39] LABS: HEMATOCRIT. 21.2 % (36.0-48.0); HEMOGLOBIN. 6.4 g/dL (12.0-16.0)
[2020-09-30 18:29] LABS: PLATELET ESTIMATE DECREASED
[2020-09-30] MEDS ORDERED: FUROSEMIDE 20MG/2ML VIAL IVP SCH (20:45)
[2020-10-01] VITALS (63 sets, daily range): BP systolic 85–126; BP diastolic 36–78
[2020-10-01] MEDS: IPRATROPIUM BROMIDE (0.02%) 0.5MG/2.5ML NEB HHN SCH ×6 (00:16→20:57)
[2020-10-01 03:20] LABS: HEMATOCRIT. 29.6 % (36.0-48.0); MEAN CORPUSCULAR HEMOGLOBIN 26.5 pg (28.0-32.0); MEAN CORPUSCULAR VOLUME 86.6 fL (81.0-99.0); MEAN PLATELET VOLUME 7.1 fl (7.4-10.4); PLATELET 71 x1000/uL (130-400); RED BLOOD CELL COUNT 3.42 mill/uL (4.2-5.4)
[2020-10-01 03:33] LABS: INR 1.1
[2020-10-01] MEDS: AZTREONAM 2 GM in SODIUM CHLORIDE 0.9% 100 ML IV SCH ×2 (04:48→17:28)
[2020-10-01] MEDS: LEVOTHYROXINE SODIUM 25MCG TABLET PO SCH (06:30)
[2020-10-01] MEDS: METOCLOPRAMIDE HCL 10MG/2ML VIAL IV SCH ×3 (06:30→17:27)
[2020-10-01] MEDS: [UNRECOGNIZED DRUG - OTHER] GT SCH ×3 (06:31→22:30)
[2020-10-01] MEDS: VANCOMYCIN HCL 1000 MG/20 ML ORAL PO SCH ×3 (06:32→17:28)
[2020-10-01 07:45] LABS: BG BASE EXCESS 3.1 mmol/L (-2.0-2.0); BG CARBOXYHEMOGLOBIN 0.8 % (0.5-1.5); BG DEOXYHEMOGLOBIN 6.4 % (0.0-5.0); BG HCO3 ACT 27.9 mmol/L (22.0-26.0); BG METHEMOGLOBIN 0.7 % (0.0-1.5); BG OXYGEN SATURATION 93.5 % (92.0-98.5); BG OXYHEMOGLOBIN 92.1 % (94.0-97.0); BG PCO2 43.5 mmHg (35.0-45.0); BG PH 7.425 (7.350-7.450); BG PO2 66.6 mmHg (75.0-100.0); BG SAMPLE SITE RIGHT RADIAL; BG TOTAL HEMOGLOBIN 10.8 g/dL (12.0-18.0); BG VENT MODE VENT- PRVC
[2020-10-01] MEDS: LEVETIRACETAM 500MG/5ML CUP GT SCH ×2 (08:53→22:29)
[2020-10-01] MEDS: DOCUSATE SODIUM 100MG CAPSULE PO SCH ×2 (08:53→17:00)
[2020-10-01] MEDS: MIDODRINE HCL 5MG TABLET PO SCH ×3 (08:54→17:28)
[2020-10-01] MEDS: FAMOTIDINE 20MG TABLET GT SCH ×2 (08:54→22:29)
[2020-10-01] MEDS: PREDNISONE 20MG TABLET PO SCH (08:54)
[2020-10-01] MEDS: METOPROLOL TARTRATE 50MG TABLET GT SCH ×2 (08:55→21:00)
[2020-10-01 09:13] LABS: CHLORIDE 96 mEq/L (98-107)
[2020-10-01] MEDS: COLISTIMETHATE SODIUM 150MG/VIAL INH SCH (09:20)
[2020-10-01] MEDS ORDERED: FUROSEMIDE 20MG/2ML VIAL IVP NR (13:00)
[2020-10-01] MEDS: ACETAMINOPHEN 650MG/20.3ML UDC GT PRN (14:27)
[2020-10-01] MEDS: MICAFUNGIN 100 MG in SODIUM CHLORIDE 0.9% 100 ML IV SCH (14:41)
[2020-10-01] MEDS: PHENYLEPHRINE 50 MG in SODIUM CHLORIDE 0.9% 245 ML IV PRN ×2 (14:42→22:15)
[2020-10-01 23:01] LABS: ATYPICAL LYMPHOCYTES 4; NUCLEATED RED BLOOD CELLS 2 /100 WBC; PLATELET ESTIMATE DECREASED
[2020-10-02] VITALS (93 sets, daily range): BP systolic 82–139; BP diastolic 52–78
[2020-10-02] MEDS: METOCLOPRAMIDE HCL 10MG/2ML VIAL IV SCH ×4 (00:15→17:18)
[2020-10-02] MEDS: VANCOMYCIN HCL 1000 MG/20 ML ORAL PO SCH ×4 (00:15→17:19)
[2020-10-02] MEDS: COLISTIMETHATE SODIUM 150MG/VIAL INH SCH ×4 (00:36→16:25)
[2020-10-02] MEDS: AZTREONAM 2 GM in SODIUM CHLORIDE 0.9% 100 ML IV SCH ×2 (05:46→17:18)
[2020-10-02] MEDS: [UNRECOGNIZED DRUG - OTHER] GT SCH ×3 (05:48→21:29)
[2020-10-02] MEDS: LEVOTHYROXINE SODIUM 25MCG TABLET PO SCH (05:49)
[2020-10-02 05:53] LABS: HEMATOCRIT. 28.4 % (36.0-48.0); HEMOGLOBIN. 9.3 g/dL (12.0-16.0); MEAN CORPUSCULAR HEMOGLOBIN 28.2 pg (28.0-32.0); MEAN CORPUSCULAR VOLUME 86.1 fL (81.0-99.0); MEAN PLATELET VOLUME 7.5 fl (7.4-10.4); PLATELET 74 x1000/uL (130-400); RED BLOOD CELL COUNT 3.29 mill/uL (4.2-5.4); RED CELL DISTRIBUTION WIDTH 17.2 % (11.6-14.6)
[2020-10-02 06:03] LABS: CHLORIDE 98 mEq/L (98-107)
[2020-10-02] MEDS: DOCUSATE SODIUM 100MG CAPSULE PO SCH ×2 (09:00→17:00)
[2020-10-02] MEDS: METOPROLOL TARTRATE 50MG TABLET GT SCH (09:00)
[2020-10-02] MEDS: MIDODRINE HCL 5MG TABLET PO SCH ×3 (09:36→17:18)
[2020-10-02] MEDS: LEVETIRACETAM 500MG/5ML CUP GT SCH ×2 (09:36→21:29)
[2020-10-02] MEDS: FAMOTIDINE 20MG TABLET GT SCH ×2 (09:36→21:29)
[2020-10-02] MEDS: PREDNISONE 20MG TABLET PO SCH (09:38)
[2020-10-02 09:48] LABS: BG BASE EXCESS 0.4 mmol/L (-2.0-2.0); BG CARBOXYHEMOGLOBIN 1.2 % (0.5-1.5); BG FRACTION INSPIRED OXYGEN 45; BG HCO3 ACT 24.5 mmol/L (22.0-26.0); BG METHEMOGLOBIN 0.5 % (0.0-1.5); BG OXYGEN SATURATION 94.9 % (92.0-98.5); BG OXYHEMOGLOBIN 93.3 % (94.0-97.0); BG PCO2 37.6 mmHg (35.0-45.0); BG PH 7.432 (7.350-7.450); BG PO2 72.4 mmHg (75.0-100.0); BG SAMPLE SITE RIGHT RADIAL; BG TOTAL HEMOGLOBIN 10.3 g/dL (12.0-18.0); BG TOTAL RESPIRATORY RATE 16 b/min; BG VENT MODE VENT- PRVC
[2020-10-02] MEDS ORDERED: ACETAMINOPHEN 650MG/20.3ML UDC PO PRN (10:00)
[2020-10-02 14:27] LABS: PLATELET ESTIMATE DECREASED
[2020-10-02] MEDS: MICAFUNGIN 100 MG in SODIUM CHLORIDE 0.9% 100 ML IV SCH (14:57)
[2020-10-02] MEDS: PHENYLEPHRINE 50 MG in SODIUM CHLORIDE 0.9% 245 ML IV PRN (16:46)
[2020-10-02] MEDS ORDERED: VANCOMYCIN 1250MG in DEXTROSE 5% WATER 250ML IV SCH (17:00)
[2020-10-03] VITALS (57 sets, daily range): BP systolic 95–124; BP diastolic 37–77
[2020-10-03] MEDS ORDERED: VANCOMYCIN 500 MG PREMIX 100 ML IV SCH
[2020-10-03] MEDS: VANCOMYCIN HCL 1000 MG/20 ML ORAL PO SCH ×3 (00:26→11:16)
[2020-10-03] MEDS: METOCLOPRAMIDE HCL 10MG/2ML VIAL IV SCH ×3 (00:26→11:16)
[2020-10-03] MEDS: COLISTIMETHATE SODIUM 150MG/VIAL INH SCH (04:54)
[2020-10-03] MEDS: AZTREONAM 2 GM in SODIUM CHLORIDE 0.9% 100 ML IV SCH (05:19)
[2020-10-03] MEDS: LEVOTHYROXINE SODIUM 25MCG TABLET PO SCH ×2 (05:49→06:46)
[2020-10-03] MEDS: [UNRECOGNIZED DRUG - OTHER] GT SCH ×2 (05:49→14:00)
[2020-10-03] MEDS ORDERED: VANCOMYCIN 750 MG PREMIX 150 ML IV SCH (06:00)
[2020-10-03 07:14] LABS: HEMATOCRIT. 27.5 % (36.0-48.0); MEAN CORPUSCULAR HEMOGLOBIN 28.2 pg (28.0-32.0); MEAN CORPUSCULAR VOLUME 86.3 fL (81.0-99.0); MEAN PLATELET VOLUME 7.7 fl (7.4-10.4); PLATELET 81 x1000/uL (130-400); RED BLOOD CELL COUNT 3.19 mill/uL (4.2-5.4); RED CELL DISTRIBUTION WIDTH 16.9 % (11.6-14.6)
[2020-10-03 07:36] LABS: CHLORIDE 97 mEq/L (98-107)
[2020-10-03] MEDS ORDERED: DEXTROSE 50% WATER 50ML SYRINGE IV ONE (08:24)
[2020-10-03] MEDS: MIDODRINE HCL 5MG TABLET PO SCH ×2 (08:25→13:00)
[2020-10-03] MEDS: LEVETIRACETAM 500MG/5ML CUP GT SCH (08:25)
[2020-10-03] MEDS: PREDNISONE 20MG TABLET PO SCH (08:25)
[2020-10-03] MEDS: FAMOTIDINE 20MG TABLET GT SCH (08:26)
[2020-10-03] MEDS: DOCUSATE SODIUM 100MG CAPSULE PO SCH (08:26)
[2020-10-03] MEDS ORDERED: DEXTROSE 50% WATER 50ML SYRINGE IV PRN (08:30)
[2020-10-03] MEDS: PHENYLEPHRINE 50 MG in SODIUM CHLORIDE 0.9% 245 ML IV PRN (10:05)
[2020-10-03 10:07] LABS: PLATELET ESTIMATE DECREASED
[2020-10-03] MEDS ORDERED: MORPHINE SULFATE 250 MG in DEXT 5% WATER 240 ML IV PRN (11:15)
[2020-10-03] MEDS ORDERED: MORPHINE SULFATE 250 MG in DEXT 5% WATER 225 ML IV PRN (12:11)
[2020-10-03] MEDS ORDERED: LORAZEPAM 2MG/ML CPJ IV PRN (15:30)
== END 2020-10-03 21:45 | DRG 720 ==
LOC: ER 12:31 → EDBEDREQTM 16:11 → EDBEDREQ 16:11 → ENRESERV 20:39 → 5EST 22:21 → 7WST 09-04 21:31 → MICUNO 09-05 00:40 → 6WST 09-06 18:03 → 5EST 09-10 12:32 → MICUNO 09-13 19:40 → MICUSO 09-18 08:17 → MICUNO 10-01 19:00 → 5EST 10-03 06:00
PROVIDERS: ADMIT Internal Medicine; ATTEND Internal Medicine
PROC: 5A09357 Assistance with Respiratory Ventilation, Less than 24 Consecutive Hours, Continuous Positive Airway Pressure (ICD-10-PCS; 2020-09-05)
PROC: 5A09357 Assistance with Respiratory Ventilation, Less than 24 Consecutive Hours, Continuous Positive Airway Pressure (ICD-10-PCS; 2020-09-06)
PROC: 5A09357 Assistance with Respiratory Ventilation, Less than 24 Consecutive Hours, Continuous Positive Airway Pressure (ICD-10-PCS; 2020-09-08)
PROC: 5A09457 Assistance with Respiratory Ventilation, 24-96 Consecutive Hours, Continuous Positive Airway Pressure (ICD-10-PCS; 2020-09-10)
PROC: 5A1955Z Respiratory Ventilation, Greater than 96 Consecutive Hours (ICD-10-PCS; principal; 2020-09-13)
PROC: 0BH17EZ Insertion of Endotracheal Airway into Trachea, Via Natural or Artificial Opening (ICD-10-PCS; 2020-09-13)
PROC: 30233N1 Transfusion of Nonautologous Red Blood Cells into Peripheral Vein, Percutaneous Approach (ICD-10-PCS; 2020-09-15)
DX: A41.9 Sepsis, unspecified organism (principal); J96.02 Acute respiratory failure with hypercapnia; R65.21 Severe sepsis with septic shock; G93.40 Encephalopathy, unspecified; E43 Unspecified severe protein-calorie malnutrition; J18.9 Pneumonia, unspecified organism; A04.72 Enterocolitis due to Clostridium difficile, not specified as recurrent; D69.6 Thrombocytopenia, unspecified; C79.51 Secondary malignant neoplasm of bone; I27.20 Pulmonary hypertension, unspecified; E87.2 Acidosis; C79.31 Secondary malignant neoplasm of brain; D64.9 Anemia, unspecified; C53.9 Malignant neoplasm of cervix uteri, unspecified; E87.1 Hypo-osmolality and hyponatremia; K80.20 Calculus of gallbladder without cholecystitis without obstruction; R13.12 Dysphagia, oropharyngeal phase; Z20.822 Contact with and (suspected) exposure to COVID-19; B37.49 Other urogenital candidiasis; Z66 Do not resuscitate; N17.9 Acute kidney failure, unspecified; I10 Essential (primary) hypertension; E83.42 Hypomagnesemia; C78.7 Secondary malignant neoplasm of liver and intrahepatic bile duct; E72.20 Disorder of urea cycle metabolism, unspecified; N20.0 Calculus of kidney; K62.89 Other specified diseases of anus and rectum; Z60.2 Problems related to living alone; L89.156 Pressure-induced deep tissue damage of sacral region; I73.9 Peripheral vascular disease, unspecified; Z51.5 Encounter for palliative care; C56.9 Malignant neoplasm of unspecified ovary; Z92.3 Personal history of irradiation; Z68.28 Body mass index [BMI] 28.0-28.9, adult; Z88.1 Allergy status to other antibiotic agents; Z93.1 Gastrostomy status; Z79.899 Other long term (current) drug therapy; Z92.21 Personal history of antineoplastic chemotherapy; Z85.41 Personal history of malignant neoplasm of cervix uteri
CPT/HCPCS: 36415; 36600; 70486; 70553; 71045; 71250; 71275; 74176; 76700; 80048; 80053; 80076; 80202; 81003; 82040; 82140; 82375; 82533; 82607; 82728; 82746; 82805; 82962; 83540; 83550; 83605; 83735; 83880; 83935; 84100; 84134; 84145; 84300; 84439; 84443; 84481; 84484; 85014; 85018; 85025; 85044; 85049; 85379; 85384; 86850; 86900; 86920; 87015; 87045; 87070; 87077; 87186; 87427; 87449; 87493; 93005; 93306; 93970; 94003; 94640; 94660; 94667; 97162; 99291; A6261; A9577; C9113; J0770; J1160; J1940; J1956; J2060; J2248; J2270; J2274; J2370; J2765; J3010; J3370; J3475; J3490; J7030; J7040; J7050; J7060; J7070; J7512; J7608; P9016; Q9967; U0003; U0005; A4315